=== PATIENT | male | born 1960 | race Caucasian/White ===

== ENCOUNTER → 2017-11-24 08:22 | Outpatient (CLI) | payer OTHER, SELFPAY ==
--- NOTE | 2017-11-24 | DI.ECHO.S_ITS ---
[facility] +---------+ : : [address] : [address] : : : : [phone] : : : : Phone: [phone]+ Echocardiogram Report + + :Name: IKE SABILLON Study Date: 11/24/2017 Height: 74 in : :[facility] Weight: 195 lb : : Gender: Male BSA: 2.1 m2 : :: 1960 Age: 57 yrs BP: 130/80 mmHg: :Reason For Study: Aortic, Biscupid Valve : : Performed By: Ariadna Espinoza : :Referring: NORMAN MIGUEL : + + Interpretation Summary Left ventricular systolic function is normal without focal wall motion abnormalities with the ejection fraction visually estimated to be 55-60%. There is borderline concentric left ventricular hypertrophy but diastolic parameters suggest normal left ventricular diastolic function and normal filling pressures. There has been no significant change since the previous study. The right ventricle is normal in size and function and is unchanged compared to the previous study. The right ventricular systolic pressure is estimated at 24 mmHg assuming a right atrial pressure of 3 mm Hg, and is likely unchanged compared to the previous study. Both atria are normal in size and unchanged compared to the previous study. The aortic valve is bicuspid and slightly calcified but the leaflets open fairly well with only minmal aortic stenosis with a calculated aortic valve area of 1.5 acid remover? and 1.9 acid remover? by planimetry and is unchanged compared to the previous study. There is no other significant valvular heart disease. The ascending aorta is moderately enlarged but unchanged compared to the previous study. The aortic arch is mildly enlarged. Procedure: A two-dimensional transthoracic echocardiogram with color flow and Doppler was performed. The study quality was technically good. Comparison is made with the echocardiogram of April,. The patient was in normal sinus rhythm during the exam. Left Ventricle: The left ventricle is normal in size. There is borderline concentric left ventricular hypertrophy. Left ventricular systolic function is normal without focal wall motion abnormalities. The ejection fraction is estimated to be 55-60%. Assessment of diastolic parameters indicates normal left ventricular diastolic function and normal filling pressures. There has been no significant change since the previous study. Right Ventricle: The right ventricle is normal in size and function. This is unchanged compared to the previous study. Atria: Both atria are normal in size. This is unchanged compared to the previous study. The interatrial septum is intact with no evidence for an atrial septal defect. Mitral Valve: The mitral valve is normal in structure and function. There is no mitral regurgitation noted. Aortic Valve: The aortic valve is bicuspid. The aortic valve is slightly calcified. The aortic valve opens well. There is minmal aortic stenosis. Severity ratio is 0.32. The calculated aortic valve area is 1.5 cm2. The aortic valve area is 1.9 centimeters squared by planimetry. This is unchanged compared to the previous study. The peak aortic velocity is 2.4 m/sec. The aortic valve mean gradient is 12 mmHg. No aortic regurgitation is present. Tricuspid Valve: The tricuspid valve is normal in structure and function. There is trace tricuspid regurgitation. The right ventricular systolic pressure is estimated at 24 mmHg assuming a right atrial pressure of 3 mm Hg. This is unchanged compared to the previous study. Pulmonic Valve: The pulmonic valve is not well seen, but is grossly normal. There is no pulmonic valvular regurgitation. There is no other significant valvular heart disease. Great Vessels: The aortic root is normal size. The ascending aorta is moderately enlarged. This is unchanged compared to the previous study. The aortic arch is mildly enlarged. Pericardium/ Pleura There is no pericardial effusion. There is no pleural effusion. MMode/2D Measurements & Calculations LVIDd: 4.8 cm LVOT diam: 2.4 cm LVIDs: 3.1 cm Ao root diam: 3.6 cm FS: 35.2 % Aortic Jxn: 2.9 cm IVSd: 0.91 cm asc Aorta Diam: 4.2 cm LVPWd: 1.1 cm Ao Arch Diam (Prox Trans): 3.3 cm LV orellana. diameter/BSA (cm/m^2): 2.2 LV sys. diameter/BSA (cm/m^2): 1.4 LA dimension: 3.7 cm RA long axis: 5.3 cm LA A2 area: 21.4 cm2 RA area: 17.8 cm2 LA A4 area: 19.7 cm2 RA vol: 51.5 ml LA length (vol): 5.6 cm RA : 24.0 ml/m2 LA vol: 64.1 ml IVC diam: 1.7 cm LA vol index: 29.8 ml/m2 RVDd major: 6.2 cm RVD1 (basal): 3.5 cm RVD2 (mid): 3.0 cm MAYCOL (plan): 1.9 cm2 Doppler Measurements & Calculations Ao V2 max: 242.6 cm/sec LVOT Max Cosme: 63.0 cm/sec Ao V2 mean: 156.4 cm/sec LV V1 max P.6 mmHg Ao max P.5 mmHg LV V1 VTI: 16.3 cm Ao mean P.5 mmHg MAYCOL(I,D): 1.5 cm2 Ao V2 VTI: 50.3 cm MAYCOL(V,D): 1.2 cm2 sev ratio: 0.32 MAYCOL indexed to BSA (cm^2/m^2): 0.69 MV E max cosme: 52.8 cm/sec TR max cosme: 231.2 cm/sec MV A max cosme: 55.9 cm/sec TR max P.4 mmHg MV E/A: 0.94 PA V2 max: 96.5 cm/sec Med Peak E' Cosme: 7.6 cm/sec PA V2 mean: 61.8 cm/sec E/E' med: 7.0 PA mean P.8 mmHg Lat Peak E' Cosme: 9.9 cm/sec PA Accel Time: 0.20 sec E/E' lat: 5.3 E/e' average: 6.2 MV dec time: 0.27 sec MV P1/2t: 76.4 msec MV P1/2t max cosme: 52.2 cm/sec MVA(P1/2t): 2.9 cm2 Reading Physician:CONSTANTINO
== END ==
PROVIDERS: Family Provider Internal Medicine; PCP Internal Medicine; Visit Provider Internal Medicine
DX: Q23.1 Congenital insufficiency of aortic valve (principal)
CPT/HCPCS: 93306

== ENCOUNTER → 2020-10-01 09:13 | Outpatient (CLI) | payer OTHER, SELFPAY ==
[2020-10-01 10:53] LABS: Add Manual Diff / Slide Review NO; Basophils Absolute Auto 0 /uL (0-100); Basophils Percent Auto 0.5 % (0-2); Eosinophils Absolute Auto 100 /uL (0-450); Eosinophils Percent Auto 1.7 % (2-4); Hematocrit 44.4 % (41-53); Hemoglobin 15.2 g/dL (13.5-17.5); Lymphocytes Absolute Auto 1000 /uL (1100-4500); Lymphocytes Percent Auto 23.8 % (25-40); Mean Corpuscular HGB Conc 34.1 % (30-36); Mean Corpuscular Hemoglobin 31.2 PG (26-34); Mean Corpuscular Volume 91.3 fL (80-100); Monocytes Absolute Auto 500 /uL (0-900); Monocytes Percent Auto 11.4 % (3-14); Neutrophils Absolute Auto 2700 /uL (1500-7000); Neutrophils Percent Auto 62.6 % (50-75); Platelet Count 191 X10^3/uL (150-400); Red Blood Cell Count 4.86 X10^6/uL (4.5-5.9); White Blood Cell Count 4.3 X10^3/uL (4.5-11.0)
[2020-10-01 11:04] LABS: Hemoglobin A1C% w Est Avg Glu 5.2 % (4.0-6.0)
[2020-10-01 11:06] LABS: Alanine Aminotransferase 29 IU/L (<50); Albumin 4.2 g/dL (3.5-5.0); Albumin Globulin Ratio 1.4 (1.0-2.8); Alkaline Phosphatase 59 U/L (38-126); Aspartate Aminotransferase 29 IU/L (17-59); BUN Creatinine Ratio 18.1 (6-22); Bilirubin Total 1.8 mg/dL (0.2-1.3); Blood Urea Nitrogen 17 mg/dL (9-20); Calcium 9.6 mg/dL (8.4-10.2); Carbon Dioxide 28 mmol/L (22-32); Chloride 103 mmol/L (98-107); Cholesterol 170 mg/dL (140-199); Estimated Glomerular Filt Rate > 60.0 mL/min (>60); Globulin 2.9 g/dL (1.7-4.1); Glucose 97 mg/dL (80-110); HDL Cholesterol 49 mg/dL (40-60); HEMOLYSIS < 15 (0-50); LDL Cholesterol Calculated 101 mg/dL (<100); Potassium 4.4 mmol/L (3.4-5.1); Sodium 138 mmol/L (137-145); Total Protein 7.1 g/dL (6.3-8.2); Triglycerides 100 mg/dL (35-150)
[2020-10-01 11:29] LABS: TSH w/ Reflex to FT4 2.26 uIU/mL (0.47-4.68)
== END ==
PROVIDERS: Family Provider Internal Medicine; PCP Family Medicine; Referring Provider Family Medicine; Visit Provider Family Medicine
DX: E78.1 Pure hyperglyceridemia (principal); E80.6 Other disorders of bilirubin metabolism
CPT/HCPCS: 36415; 80053; 80061; 83036; 84443; 85025

== ENCOUNTER → 2020-12-26 13:29 | Outpatient (CLI) | payer OTHER, SELFPAY ==
--- NOTE | 2020-12-26 13:46 | DI.ECHO.S_ITS ---
:Reason For Study: Aortic, Biscupid Valve : :Ordering Physician: VINNY, : :JOSE Performed By: Catrachito Simon : :Referring: JOSE CASILLAS : + + Interpretation Summary The left ventricle is normal in size and wall thickness.The ejection fraction is estimated to be 60-65%. The right ventricle is normal in size and function. The aortic valve is bicuspid. The aortic valve is mildly calcified. The peak aortic velocity is 2.81 m/sec. The aortic valve mean gradient is 17 mmHg. The peak aortic velocity on the previous exam was 2.4 m/sec. The calculated aortic valve area is 1.7 cm2. There is mild aortic stenosis. The IVC is of normal diameter and collapses greater than 50% with a sniff. This suggests a low right atrial pressure of 3 mm Hg. The ascending aorta is moderately enlarged. 4.2 cm in diameter. Unchanged from the previous study. Procedure: A two-dimensional transthoracic echocardiogram with color flow and Doppler was performed. The study quality was technically adequate. Comparison is made with the echocardiogram of 11/24/2017. The patient was in normal sinus rhythm during the exam. Left Ventricle: The left ventricle is normal in size and wall thickness. There is no thrombus. Left ventricular systolic function is normal. The ejection fraction is estimated to be 60-65%. There has been no significant change since the previous exam. There are no focal wall motion abnormalities. Diastolic parameters suggest a relaxation abnormality of the left ventricle, consistent with probable normal filling pressures. Right Ventricle: The right ventricle is normal in size and function. Atria: Both atria are normal in size. There is no Doppler evidence for an interatrial shunt. Mitral Valve: The mitral valve is normal in structure and function. There is no mitral regurgitation noted. Aortic Valve: The aortic valve is bicuspid. The aortic valve is mildly calcified. There is mild aortic stenosis. The aortic valve mean gradient is 17 mmHg. The peak aortic velocity is 2.81 m/sec. The peak aortic velocity on the previous exam was 2.4 m/sec. The calculated aortic valve area is 1.7 cm2. No aortic regurgitation is present. Tricuspid Valve: The tricuspid valve is normal in structure and function. There is a trace or physiologic amount of tricuspid regurgitation. Pulmonary artery pressures cannot be estimated because of the lack of a measurable TR jet velocity but the IVC suggests a CVP of around 3 mmHg. Pulmonic Valve: The pulmonic valve is not well seen, but is grossly normal. There is no pulmonic valvular regurgitation. Great Vessels: The aortic root is normal size. The ascending aorta is moderately enlarged. The IVC is of normal diameter and collapses greater than 50% with a sniff. This suggests a low right atrial pressure of 3 mm Hg. Pericardium/ Pleura There is no pericardial effusion. There is no pleural effusion. MMode/2D Measurements & Calculations LVIDd: 4.8 cm LVOT diam: 2.2 cm LVIDs: 3.1 cm Ao root diam: 3.5 cm FS: 35.4 % asc Aorta Diam: 4.2 cm IVSd: 0.90 cm LVPWd: 1.0 cm LV orellana. diameter/BSA (cm/m^2): 2.2 LV sys. diameter/BSA (cm/m^2): 1.4 LA dimension: 2.2 cm RA long axis: 4.2 cm LA A2 area: 19.5 cm2 LA A4 area: 17.4 cm2 LA length (vol): 5.4 cm LA vol: 52.9 ml LA vol index: 24.6 ml/m2 TAPSE_phl: 1.9 cm Doppler Measurements & Calculations Ao V2 max: 281.0 cm/sec LVOT Max Cosme: 116.0 cm/sec Ao V2 mean: 193.0 cm/sec LV V1 max P.4 mmHg Ao max P.0 mmHg LV V1 VTI: 24.3 cm Ao mean P.0 mmHg MAYCOL(I,D): 1.7 cm2 Ao V2 VTI: 53.2 cm MAYCOL(V,D): 1.6 cm2 sev ratio: 0.46 MAYCOL indexed to BSA (cm^2/m^2): 0.81 MV E max cosme: 69.5 cm/sec PA pr(Accel): 37.6 mmHg MV A max cosme: 75.5 cm/sec MV E/A: 0.92 Med Peak E' Cosme: 7.4 cm/sec E/E' med: 9.5 Lat Peak E' Cosme: 13.2 cm/sec E/E' lat: 5.3 E/e' average: 7.4 MV dec time: 0.30 sec SV(LVOT): 92.4 ml AV VR_phl: 0.41 MAYCOL(VTI)/BSA_phl: 0.81 MV P1/2t-pr_phl: 88.0 msec Reading Physician:06:20 PM
== END ==
PROVIDERS: PCP Family Medicine; Referring Provider Family Medicine; Visit Provider Family Medicine
DX: Q23.1 Congenital insufficiency of aortic valve (principal); I77.89 Other specified disorders of arteries and arterioles; I71.2 Thoracic aortic aneurysm, without rupture
CPT/HCPCS: 93306

== ENCOUNTER 2021-03-24 11:15 | Outpatient (RCR) | payer OTHER, SELFPAY ==
--- NOTE | 2020-12-10 15:50 | PT.OIE ---
Current Diagnoses Sprain of unspecified ligament of right ankle, initial encounter (12/10/20) Past Medical History (Last Updated 11/27/20 @ 11:27 by Mario Dsouza MD) Ankle pain (~2016) Ascending aortic aneurysm Bicuspid aortic valve Cataracts, bilateral Dilated aortic root Encounter for well adult exam without abnormal findings Foot pain (~2016) Headache History of hernia repair Hyperbilirubinemia Hypertriglyceridemia Psoriasis Tinnitus Past Surgical History (Last Updated 11/22/20 @ 21:23 by Katelyn Larsen) History of hernia repair Visit Care Team Role Provider Type Mario Dsouza MD Attending Provider Physician Primary Care Provider Referring Provider Specialty: [facility] Address: [address] [place] [address], [facility] Email: [email or web address] Physical Therapy Initial Evaluation PT-OP-A Visit Information Start: 12/10/20 15:32 Freq: Status: Active Protocol: Document 12/10/20 12:01 OF (Rec: 12/10/20 15:50 OF [id number]) Out-Patient Physical Therapy Visit Information Visit Information Visit Type Initial Evaluation Visit Start Time 11:15 Visit Stop Time 12:01 Total Visit Minutes 46 Visit Number 1 Evaluation Information Evaluation Date 12/10/20 PT-OP-B Current Condition Start: 12/10/20 15:32 Freq: Status: Active Protocol: Document 12/10/20 12:01 OF (Rec: 12/10/20 15:50 OF [id number]) Current Condition History of Current Condition Onset Date high school History of Current Condition Pt states he injured ankle wrestling in high school, it has bothered him off/on since. The past few months have been worse. He has pain after work or exercise, rarely during exercise or activity Treatment Goals Patient/Caregiver Goals get my ankle back to normal Prior Functional Status Baseline Function- ADL's Independent Baseline Function- Mobility Independent Current Functional Impairments (Reported) Functional Limitations- ADL's pain with work, pain with exercise PT-OP-C Subjective Start: 12/10/20 15:32 Freq: Status: Active Protocol: Document 12/10/20 12:01 OF (Rec: 12/10/20 15:50 OF [id number]) OP-PT Subjective Patient Comments Patient Comments pt reports ankle pain after prolonged kneeling, walking or standing on a ladder Patient Reported Progress Same Patient Questionnaires Lower Extremity Functional Scale LEFS Impairment 20 to 39% Impaired (Score 48- 62) OP-PT Pain Assessment Pain Assessment Grid Paper Pain Assessment Grid Completed Yes: ankle medial, superior Location r ankle Scale Used Numeric (0 - 10) Description Aching,Pulling Frequency Frequent Pain Aggravating Factors ADL's,Activity,Exercise Pain Alleviating Factors Inactivity Home Pain Medication Use Pain Medications Used No PT-OP-K Range of Motion Start: 12/10/20 15:32 Freq: Status: Active Protocol: Document 12/10/20 12:01 OF (Rec: 12/10/20 15:50 OF [id number]) Ankle and Foot Goniometric Range of Motion Ankle and Foot Left Ankle/Foot ROM WFL No Testing Position Sitting Dorsiflexion with Knee Flexed 15 Dorsiflexion with Knee Extended 15 Plantarflexion 30 Right Ankle/Foot ROM WFL No Testing Position Sitting Dorsiflexion with Knee Flexed 10 Dorsiflexion with Knee Extended 10 Plantarflexion 30 PT-OP-M Strength Start: 12/10/20 15:32 Freq: Status: Active Protocol: Document 12/10/20 12:01 OF (Rec: 12/10/20 15:50 OF [id number]) Ankle/Foot Strength Ankle and Foot Manual Muscle Testing Left Dorsiflexion (L4) 5 Normal Plantarflexion (S1) 5 Normal Inversion 5 Normal Eversion (S1) 5 Normal Right Dorsiflexion (L4) 4+ Good+ Plantarflexion (S1) 4+ Good+ Inversion 4 Good Eversion (S1) 4 Good PT-OP-Q Treatments Start: 12/10/20 15:32 Freq: Status: Active Protocol: Document 12/10/20 12:01 OF (Rec: 12/10/20 15:50 OF [id number]) Therapeutic Exercises Standing Exercises gastroc stretch Standing Exercise Name runners stretch Side bilateral Reps/Minutes [id number] Manual Therapy Treatment Joint Mobilizations talus Direction A.P for dorsiflexion Grade III Body Position Sitting Reps/Duration x5min Self-Care/Home Management Treatment Education Patient Education Home Exercise Program,Joint Protection,Pain Management PT-OP-T Assessment and Plan Start: 12/10/20 15:32 Freq: Status: Active Protocol: Document 12/10/20 12:01 OF (Rec: 12/10/20 15:50 OF [id number]) Physical Therapy Assessment Rehab Potential Rehabilitation Potential Good Evaluation Complexity Number of Personal Factors/Comorbidities 1-2 Number of Body Systems Impaired 1-2 Clinical Presentation at Evaluation Stable Impairments Impairments Activity Tolerance,Gait,Pain, ROM,Strength Goals 4 Impairment ankle weakness STG Duration Pt will improve ankle strength to 5/5 in all planes LTG Duration 6 weeks 3 Impairment loss of LE function Mcfp Goal (LTG) Pt will improve LEFS score to >70/80 to demonstrate improved LE function 2 Impairment pain with prolonged walking Short Term Goal (STG) Pt will be able to walk 1mile with pain <2/10 STG Duration 2weeks Mcfp Goal (LTG) Pt will be able to walk 3miles with pain <2/10 LTG Duration 6 weeks 1 Impairment pt has no HEP Short Term Goal (STG) Pt will be I with HEP to manage pain in R ankle and perform strengthening activity STG Duration 2 weeks Assessment Summary Assessment Gt is a pleasant 60 yo male . He has had chronic ankle pain which originated in high school. He has on/off symptoms , mostly in medial tibia, occasional over anterior ankle . he states it feels unsteady occasionally. He has pain with prolonged forced plantarflexion (kneeling on floor) and standing on ladder, or walking >1mile. He has no relevant Pmhx and is motived to return to restoring his house. He demonstrates good arch lift, but flat feet bilat . He has pain in great toe flexors with resistance, otherwise pain free. He is willing to try joint mobilizations, shoe inserts, and stretches to address his ankle pain. He will require skilled therapy to improve his R ankle ROM and strength, increase his LE function, and return to I within the community per his PLOF. Physical Therapy Plan Frequency and Duration Frequency of Treatment 1-2x/week Duration of Treatment 6weeks Plan of Care Start Date 12/10/20 Plan of Care End Date 01/21/21 Therapeutic Interventions Therapeutic Interventions Gait Training,Home Exercise Program,Joint Mobilizations, Therapeutic Activities, Therapeutic Exercises Next Visit Focus/Plan Next Note Type Treatment Note Next Visit Plan assess runners stretch, inserts, joint mobs for ankle.
--- NOTE | 2020-12-10 15:50 | PT.OPPOC ---
Physical, Occupational & Speech Therapy At [facility] Current Diagnoses Sprain of unspecified ligament of right ankle, initial encounter (12/10/20) Visit Care Team Role Provider Type Mario Dsouza MD Attending Provider Physician Primary Care Provider Referring Provider Specialty: Family Practice Address: [address] [place] [address], [facility] Email: [email or web address] Plan Of Care PT-OP-T Assessment and Plan Start: 12/10/20 15:32 Freq: Status: Active Protocol: Document 12/10/20 12:01 OF (Rec: 12/10/20 15:50 OF [id number]) Physical Therapy Assessment Rehab Potential Rehabilitation Potential Good Evaluation Complexity Number of Personal Factors/Comorbidities 1-2 Number of Body Systems Impaired 1-2 Clinical Presentation at Evaluation Stable Impairments Impairments Activity Tolerance,Gait,Pain, ROM,Strength Goals 4 Impairment ankle weakness STG Duration Pt will improve ankle strength to 5/5 in all planes LTG Duration 6 weeks 3 Impairment loss of LE function Commercial Designer Goal (LTG) Pt will improve LEFS score to >70/80 to demonstrate improved LE function 2 Impairment pain with prolonged walking Short Term Goal (STG) Pt will be able to walk 1mile with pain <2/10 STG Duration 2weeks Commercial Designer Goal (LTG) Pt will be able to walk 3miles with pain <2/10 LTG Duration 6 weeks 1 Impairment pt has no HEP Short Term Goal (STG) Pt will be I with HEP to manage pain in R ankle and perform strengthening activity STG Duration 2 weeks Assessment Summary Assessment Gt is a pleasant 60 yo male . He has had chronic ankle pain which originated in high school. He has on/off symptoms , mostly in medial tibia, occasional over anterior ankle . he states it feels unsteady occasionally. He has pain with prolonged forced plantarflexion (kneeling on floor) and standing on ladder, or walking >1mile. He has no relevant Pmhx and is motived to return to restoring his house. He demonstrates good arch lift, but flat feet bilat . He has pain in great toe flexors with resistance, otherwise pain free. He is willing to try joint mobilizations, shoe inserts, and stretches to address his ankle pain. He will require skilled therapy to improve his R ankle ROM and strength, increase his LE function, and return to I within the community per his PLOF. Physical Therapy Plan Frequency and Duration Frequency of Treatment 1-2x/week Duration of Treatment 6weeks Plan of Care Start Date 12/10/20 Plan of Care End Date 01/21/21 Therapeutic Interventions Therapeutic Interventions Gait Training,Home Exercise Program,Joint Mobilizations, Therapeutic Activities, Therapeutic Exercises Next Visit Focus/Plan Next Note Type Treatment Note Next Visit Plan assess runners stretch, inserts, joint mobs for ankle. Plan of Care Dates Plan of Care Start Date 12/10/20 Plan of Care End Date 01/21/21 Electronically Signed by: Stephen Ornelas, PT 12/10/20 [id number] Please Sign and Return: I have reviewed this Plan of Care and certify that the skilled therapy services above are required to meet the patient?s needs. Physician Signature Date Printed Name and Credentials Clinical Instructor Signature Printed Name and Credentials
--- NOTE | 2020-12-12 12:08 | PT.OTN ---
Current Diagnoses Sprain of unspecified ligament of right ankle, initial encounter (12/12/20) Physical Therapy Treatment Note PT-OP-A Visit Information Start: 12/10/20 15:32 Freq: Status: Active Protocol: Document 12/12/20 11:56 OF (Rec: 12/12/20 12:08 OF [id number]) Out-Patient Physical Therapy Visit Information Visit Information Visit Type Treatment Note Visit Start Time 11:14 Visit Stop Time 11:54 Total Visit Minutes 40 Visit Number 2 Evaluation Information Evaluation Date 12/10/20 Precautions Precautions pt states he may be self pay due to high deductible PT-OP-B Current Condition Start: 12/10/20 15:32 Freq: Status: Active Protocol: Document 12/10/20 12:01 OF (Rec: 12/10/20 15:50 OF [id number]) Current Condition History of Current Condition Onset Date high school History of Current Condition Pt states he injured ankle wrestling in high school, it has bothered him off/on since. The past few months have been worse. He has pain after work or exercise, rarely during exercise or activity Treatment Goals Patient/Caregiver Goals get my ankle back to normal Prior Functional Status Baseline Function- ADL's Independent Baseline Function- Mobility Independent Current Functional Impairments (Reported) Functional Limitations- ADL's pain with work, pain with exercise PT-OP-C Subjective Start: 12/10/20 15:32 Freq: Status: Active Protocol: Document 12/12/20 11:56 OF (Rec: 12/12/20 12:08 OF [id number]) OP-PT Subjective Patient Comments Patient Comments pt reports HEP for calf stretching, he has ordered inserts for shoes OP-PT Pain Assessment Pain Assessment Grid Paper Pain Assessment Grid Completed No: pt denies pain today PT-OP-K Range of Motion Start: 12/10/20 15:32 Freq: Status: Active Protocol: Document 12/10/20 12:01 OF (Rec: 12/10/20 15:50 OF [id number]) Ankle and Foot Goniometric Range of Motion Ankle and Foot Left Ankle/Foot ROM WFL No Testing Position Sitting Dorsiflexion with Knee Flexed 15 Dorsiflexion with Knee Extended 15 Plantarflexion 30 Right Ankle/Foot ROM WFL No Testing Position Sitting Dorsiflexion with Knee Flexed 10 Dorsiflexion with Knee Extended 10 Plantarflexion 30 PT-OP-M Strength Start: 12/10/20 15:32 Freq: Status: Active Protocol: Document 12/10/20 12:01 OF (Rec: 12/10/20 15:50 OF [id number]) Ankle/Foot Strength Ankle and Foot Manual Muscle Testing Left Dorsiflexion (L4) 5 Normal Plantarflexion (S1) 5 Normal Inversion 5 Normal Eversion (S1) 5 Normal Right Dorsiflexion (L4) 4+ Good+ Plantarflexion (S1) 4+ Good+ Inversion 4 Good Eversion (S1) 4 Good PT-OP-Q Treatments Start: 12/10/20 15:32 Freq: Status: Active Protocol: Document 12/12/20 11:56 OF (Rec: 12/12/20 12:08 OF [id number]) Therapeutic Exercises Standing Exercises heel raise on step Side bilateral Reps/Minutes 3x5 Comments eccentric focus to neutral only gastroc stretch Standing Exercise Name runners stretch Side bilateral Reps/Minutes [id number] Manual Therapy Treatment Joint Mobilizations MWM Joint ankle Direction post Grade III Body Position Standing Reps/Duration x10min Comments standing dorsiflexion from pt, post glide to talus and medial malleolus talus Grade III Body Position Standing Reps/Duration x5 min Self-Care/Home Management Treatment Education Patient Education Body Mechanics,Home Exercise Program,Pain Management PT-OP-T Assessment and Plan Start: 12/10/20 15:32 Freq: Status: Active Protocol: Document 12/12/20 11:56 OF (Rec: 12/12/20 12:08 OF [id number]) Physical Therapy Assessment Rehab Potential Rehabilitation Potential Good Evaluation Complexity Number of Personal Factors/Comorbidities 1-2 Number of Body Systems Impaired 1-2 Clinical Presentation at Evaluation Stable Impairments Impairments Activity Tolerance,Soft Tissue Mobility,Strength Goals 4 Impairment ankle weakness STG Duration Pt will improve ankle strength to 5/5 in all planes LTG Duration 6 weeks 3 Impairment loss of LE function Supervisor Engine Assembly Goal (LTG) Pt will improve LEFS score to >70/80 to demonstrate improved LE function 2 Impairment pain with prolonged walking Short Term Goal (STG) Pt will be able to walk 1mile with pain <2/10 STG Duration 2weeks [facility] Goal (LTG) Pt will be able to walk 3miles with pain <2/10 LTG Duration 6 weeks 1 Impairment pt has no HEP Short Term Goal (STG) Pt will be I with HEP to manage pain in R ankle and perform strengthening activity STG Duration 2 weeks Progress Towards Goals Progress Towards Goals Progressing Toward Goals Assessment Summary Assessment pt reports improved symptoms after HEP, increased pain with forced plantarflexion/ER while kneeling and scooting/ rolling. Physical Therapy Plan Frequency and Duration Frequency of Treatment 2x/Week Duration of Treatment 40 Plan of Care Start Date 12/12/20 Therapeutic Interventions Therapeutic Interventions Gait Training,Home Exercise Program,Joint Mobilizations, Therapeutic Activities, Therapeutic Exercises Next Visit Focus/Plan Next Note Type Treatment Note Next Visit Plan assess response to orthotics, heel lifts and manual. Progress MWM for dorsiflexion, activity mods to reduce ankle pain when aggravated
--- NOTE | 2020-12-18 16:05 | PT.OTN ---
Current Diagnoses Sprain of unspecified ligament of right ankle, initial encounter (12/18/20) Physical Therapy Treatment Note PT-OP-A Visit Information Start: 12/10/20 15:32 Freq: Status: Active Protocol: Document 12/18/20 15:58 OF (Rec: 12/18/20 16:05 OF [email or web address]) Out-Patient Physical Therapy Visit Information Visit Information Visit Type Treatment Note Visit Start Time 15:15 Visit Stop Time 15:57 Total Visit Minutes 42 Visit Number 3 Evaluation Information Evaluation Date 12/10/20 Precautions Precautions pt states he may be self pay due to high deductible PT-OP-B Current Condition Start: 12/10/20 15:32 Freq: Status: Active Protocol: Document 12/10/20 12:01 OF (Rec: 12/10/20 15:50 OF [id number]) Current Condition History of Current Condition Onset Date high school History of Current Condition Pt states he injured ankle wrestling in high school, it has bothered him off/on since. The past few months have been worse. He has pain after work or exercise, rarely during exercise or activity Treatment Goals Patient/Caregiver Goals get my ankle back to normal Prior Functional Status Baseline Function- ADL's Independent Baseline Function- Mobility Independent Current Functional Impairments (Reported) Functional Limitations- ADL's pain with work, pain with exercise PT-OP-C Subjective Start: 12/10/20 15:32 Freq: Status: Active Protocol: Document 12/18/20 15:58 OF (Rec: 12/18/20 16:05 OF [email or web address]) OP-PT Subjective Patient Comments Patient Comments pt with superfeet, reports using as instructed 2-hrs at a time Patient Reported Progress Improving OP-PT Pain Assessment Location r ankle Pain Location Details 2 Scale Used Numeric (0 - 10) Description Aching,Pulling,Sharp Frequency Frequent Pain Aggravating Factors Activity,Exercise,Walking, Stair Climbing Pain Alleviating Factors Inactivity PT-OP-K Range of Motion Start: 12/10/20 15:32 Freq: Status: Active Protocol: Document 12/10/20 12:01 OF (Rec: 12/10/20 15:50 OF [id number]) Ankle and Foot Goniometric Range of Motion Ankle and Foot Left Ankle/Foot ROM WFL No Testing Position Sitting Dorsiflexion with Knee Flexed 15 Dorsiflexion with Knee Extended 15 Plantarflexion 30 Right Ankle/Foot ROM WFL No Testing Position Sitting Dorsiflexion with Knee Flexed 10 Dorsiflexion with Knee Extended 10 Plantarflexion 30 PT-OP-M Strength Start: 12/10/20 15:32 Freq: Status: Active Protocol: Document 12/10/20 12:01 OF (Rec: 12/10/20 15:50 OF [id number]) Ankle/Foot Strength Ankle and Foot Manual Muscle Testing Left Dorsiflexion (L4) 5 Normal Plantarflexion (S1) 5 Normal Inversion 5 Normal Eversion (S1) 5 Normal Right Dorsiflexion (L4) 4+ Good+ Plantarflexion (S1) 4+ Good+ Inversion 4 Good Eversion (S1) 4 Good PT-OP-Q Treatments Start: 12/10/20 15:32 Freq: Status: Active Protocol: Document 12/18/20 15:58 OF (Rec: 12/18/20 16:05 OF [email or web address]) Therapeutic Exercises Standing Exercises heel raise on step Side bilateral Reps/Minutes 3x10 Comments eccentric focus to neutral only gastroc stretch Standing Exercise Name runners stretch Side bilateral Reps/Minutes [id number] Manual Therapy Treatment Soft Tissue Mobilization R great toe flexor Mobilization Type Rolling,Sustained Pressure Intensity/Depth Moderate Body Position Prone Comments to belly and tendon, pain with STM, improved symptoms post tx Joint Mobilizations great toe Joint MTP Direction sup/inf Grade III Body Position Prone MWM Joint ankle Direction post Grade III Body Position Standing Reps/Duration x10min Comments standing dorsiflexion from pt, post glide to talus talus Grade III Body Position Standing Reps/Duration x5 min Self-Care/Home Management Treatment Education Patient Education Home Exercise Program PT-OP-T Assessment and Plan Start: 12/10/20 15:32 Freq: Status: Active Protocol: Document 12/18/20 15:58 OF (Rec: 12/18/20 16:05 OF [email or web address]) Physical Therapy Assessment Rehab Potential Rehabilitation Potential Good Evaluation Complexity Number of Personal Factors/Comorbidities 1-2 Number of Body Systems Impaired 1-2 Clinical Presentation at Evaluation Stable Impairments Impairments Activity Tolerance,Gait,Pain, Soft Tissue Mobility,Strength Goals 4 Impairment ankle weakness STG Duration Pt will improve ankle strength to 5/5 in all planes LTG Duration 6 weeks 3 Impairment loss of LE function Fpc Goal (LTG) Pt will improve LEFS score to >70/80 to demonstrate improved LE function 2 Impairment pain with prolonged walking Short Term Goal (STG) Pt will be able to walk 1mile with pain <2/10 STG Duration 2weeks Insurance Producer Goal (LTG) Pt will be able to walk 3miles with pain <2/10 LTG Duration 6 weeks 1 Impairment pt has no HEP Short Term Goal (STG) Pt will be I with HEP to manage pain in R ankle and perform strengthening activity STG Duration 2 weeks Progress Towards Goals Progress Towards Goals Progressing Toward Goals Assessment Summary Assessment Gt reports HEP as instructed, pain with AMB. He has been using insoles as instructed, increasing wear time to 4hrs Physical Therapy Plan Frequency and Duration Frequency of Treatment 1/2x week Duration of Treatment 40 Plan of Care Start Date 12/12/20 Plan of Care End Date 01/21/21 Therapeutic Interventions Therapeutic Interventions Gait Training,Home Exercise Program,Joint Mobilizations, Therapeutic Activities, Therapeutic Exercises Next Visit Focus/Plan Next Note Type Treatment Note Next Visit Plan assess response to mobs, HEP progression
--- NOTE | 2020-12-20 12:50 | PT.OTN ---
Current Diagnoses Sprain of unspecified ligament of right ankle, initial encounter (12/20/20) Physical Therapy Treatment Note PT-OP-A Visit Information Start: 12/10/20 15:32 Freq: Status: Active Protocol: Document 12/20/20 12:43 OF (Rec: 12/20/20 12:50 OF [email or web address]) Out-Patient Physical Therapy Visit Information Visit Information Visit Type Treatment Note Visit Start Time 11:15 Visit Stop Time 11:56 Total Visit Minutes 41 Visit Number 4 Evaluation Information Evaluation Date 12/10/20 PT-OP-B Current Condition Start: 12/10/20 15:32 Freq: Status: Active Protocol: Document 12/10/20 12:01 OF (Rec: 12/10/20 15:50 OF [id number]) Current Condition History of Current Condition Onset Date high school History of Current Condition Pt states he injured ankle wrestling in high school, it has bothered him off/on since. The past few months have been worse. He has pain after work or exercise, rarely during exercise or activity Treatment Goals Patient/Caregiver Goals get my ankle back to normal Prior Functional Status Baseline Function- ADL's Independent Baseline Function- Mobility Independent Current Functional Impairments (Reported) Functional Limitations- ADL's pain with work, pain with exercise PT-OP-C Subjective Start: 12/10/20 15:32 Freq: Status: Active Protocol: Document 12/20/20 12:43 OF (Rec: 12/20/20 12:50 OF [email or web address]) OP-PT Subjective Patient Comments Patient Comments pt reports pain yesterday, improved function with orthotics OP-PT Pain Assessment Pain Assessment Grid Paper Pain Assessment Grid Completed No Location r ankle Pain Location Details pt denies pain unless weighted eversion PT-OP-K Range of Motion Start: 12/10/20 15:32 Freq: Status: Active Protocol: Document 12/10/20 12:01 OF (Rec: 12/10/20 15:50 OF [id number]) Ankle and Foot Goniometric Range of Motion Ankle and Foot Left Ankle/Foot ROM WFL No Testing Position Sitting Dorsiflexion with Knee Flexed 15 Dorsiflexion with Knee Extended 15 Plantarflexion 30 Right Ankle/Foot ROM WFL No Testing Position Sitting Dorsiflexion with Knee Flexed 10 Dorsiflexion with Knee Extended 10 Plantarflexion 30 PT-OP-M Strength Start: 12/10/20 15:32 Freq: Status: Active Protocol: Document 12/10/20 12:01 OF (Rec: 12/10/20 15:50 OF [id number]) Ankle/Foot Strength Ankle and Foot Manual Muscle Testing Left Dorsiflexion (L4) 5 Normal Plantarflexion (S1) 5 Normal Inversion 5 Normal Eversion (S1) 5 Normal Right Dorsiflexion (L4) 4+ Good+ Plantarflexion (S1) 4+ Good+ Inversion 4 Good Eversion (S1) 4 Good PT-OP-Q Treatments Start: 12/10/20 15:32 Freq: Status: Active Protocol: Document 12/20/20 12:43 OF (Rec: 12/20/20 12:50 OF [email or web address]) Therapeutic Exercises Standing Exercises heel raise on step Side bilateral Reps/Minutes 3x10 Comments eccentric focus to neutral only gastroc stretch Standing Exercise Name runners stretch, JESÚS for extended knees Side bilateral Reps/Minutes [id number] Manual Therapy Treatment Soft Tissue Mobilization R great toe flexor Mobilization Type Rolling,Sustained Pressure Intensity/Depth Moderate Body Position Prone Comments to belly and tendon, pain with STM, improved symptoms post tx, 10min Joint Mobilizations great toe Joint MTP Direction sup/inf Grade III Body Position Prone Reps/Duration 10min MWM Joint ankle Direction post Grade III Body Position Standing Reps/Duration x10min Comments standing dorsiflexion from pt, post glide to talus Self-Care/Home Management Treatment Education Patient Education Home Exercise Program,Pain Management Other Education pt advised to use orthotics at home to reduce foot/ankle pain PT-OP-T Assessment and Plan Start: 12/10/20 15:32 Freq: Status: Active Protocol: Document 12/20/20 12:43 OF (Rec: 12/20/20 12:50 OF [email or web address]) Physical Therapy Assessment Rehab Potential Rehabilitation Potential Excellent Evaluation Complexity Number of Personal Factors/Comorbidities 1-2 Number of Body Systems Impaired 1-2 Clinical Presentation at Evaluation Stable Impairments Impairments Activity Tolerance,Gait,Pain, Soft Tissue Mobility,Strength Goals 4 Impairment ankle weakness STG Duration Pt will improve ankle strength to 5/5 in all planes LTG Duration 6 weeks 3 Impairment loss of LE function Intermediate Goal (LTG) Pt will improve LEFS score to >70/80 to demonstrate improved LE function 2 Impairment pain with prolonged walking Short Term Goal (STG) Pt will be able to walk 1mile with pain <2/10 STG Duration 2weeks Intermediate Goal (LTG) Pt will be able to walk 3miles with pain <2/10 LTG Duration 6 weeks 1 Impairment pt has no HEP Short Term Goal (STG) Pt will be I with HEP to manage pain in R ankle and perform strengthening activity STG Duration 2 weeks Assessment Summary Assessment Gt reports improved daily function with orthotics, HEP as instructed Physical Therapy Plan Frequency and Duration Frequency of Treatment 1x/Week Duration of Treatment 40 Plan of Care Start Date 12/12/20 Plan of Care End Date 01/21/21 Therapeutic Interventions Therapeutic Interventions Gait Training,Home Exercise Program,Joint Mobilizations, Therapeutic Activities, Therapeutic Exercises Next Visit Focus/Plan Next Note Type Treatment Note Next Visit Plan progress post tib strengthening if symptoms have improved
--- NOTE | 2020-12-25 12:30 | PT.OTN ---
Current Diagnoses Sprain of unspecified ligament of right ankle, initial encounter (12/25/20) Physical Therapy Treatment Note PT-OP-A Visit Information Start: 12/10/20 15:32 Freq: Status: Active Protocol: Document 12/25/20 12:25 OF (Rec: 12/25/20 12:30 OF [email or web address]) Out-Patient Physical Therapy Visit Information Visit Information Visit Type Treatment Note Visit Start Time 10:25 Visit Stop Time 11:10 Total Visit Minutes 45 Visit Number 5 Evaluation Information Evaluation Date 12/10/20 Precautions Precautions pt states he may be self pay due to high deductible PT-OP-B Current Condition Start: 12/10/20 15:32 Freq: Status: Active Protocol: Document 12/10/20 12:01 OF (Rec: 12/10/20 15:50 OF [id number]) Current Condition History of Current Condition Onset Date high school History of Current Condition Pt states he injured ankle wrestling in high school, it has bothered him off/on since. The past few months have been worse. He has pain after work or exercise, rarely during exercise or activity Treatment Goals Patient/Caregiver Goals get my ankle back to normal Prior Functional Status Baseline Function- ADL's Independent Baseline Function- Mobility Independent Current Functional Impairments (Reported) Functional Limitations- ADL's pain with work, pain with exercise PT-OP-C Subjective Start: 12/10/20 15:32 Freq: Status: Active Protocol: Document 12/25/20 12:25 OF (Rec: 12/25/20 12:30 OF [email or web address]) OP-PT Subjective Patient Comments Patient Comments pt reports improved symptoms with orthotics, difficulty with normal gait pattern and no orthotics Patient Reported Progress Improving OP-PT Pain Assessment Pain Assessment Grid Paper Pain Assessment Grid Completed No: pt denies pain during tx, reports pain with bad steps PT-OP-K Range of Motion Start: 12/10/20 15:32 Freq: Status: Active Protocol: Document 12/10/20 12:01 OF (Rec: 12/10/20 15:50 OF [id number]) Ankle and Foot Goniometric Range of Motion Ankle and Foot Left Ankle/Foot ROM WFL No Testing Position Sitting Dorsiflexion with Knee Flexed 15 Dorsiflexion with Knee Extended 15 Plantarflexion 30 Right Ankle/Foot ROM WFL No Testing Position Sitting Dorsiflexion with Knee Flexed 10 Dorsiflexion with Knee Extended 10 Plantarflexion 30 PT-OP-M Strength Start: 12/10/20 15:32 Freq: Status: Active Protocol: Document 12/10/20 12:01 OF (Rec: 12/10/20 15:50 OF [id number]) Ankle/Foot Strength Ankle and Foot Manual Muscle Testing Left Dorsiflexion (L4) 5 Normal Plantarflexion (S1) 5 Normal Inversion 5 Normal Eversion (S1) 5 Normal Right Dorsiflexion (L4) 4+ Good+ Plantarflexion (S1) 4+ Good+ Inversion 4 Good Eversion (S1) 4 Good PT-OP-Q Treatments Start: 12/10/20 15:32 Freq: Status: Active Protocol: Document 12/25/20 12:25 OF (Rec: 12/25/20 12:30 OF [email or web address]) Therapeutic Exercises Standing Exercises sls Side right Reps/Minutes [id number] Comments cues for relaxed great toe, using whole foot for maintaining balance soleus stretch Side bilateral Reps/Minutes [id number] Comments cues for proper knee bend, slow stretch heel raise on step Side bilateral Reps/Minutes 3x10 Comments eccentric focus to neutral only gastroc stretch Standing Exercise Name runners stretch, JESÚS for extended knees Side bilateral Reps/Minutes [id number] Manual Therapy Treatment Soft Tissue Mobilization R great toe flexor Mobilization Type Rolling,Sustained Pressure Intensity/Depth Moderate Body Position Prone Comments to tendon, pain with STM, 10min Joint Mobilizations great toe Joint MTP Direction sup/inf Grade III Body Position Prone Reps/Duration 10min MWM Joint ankle Direction post Grade III Body Position Standing Reps/Duration x10min Comments standing dorsiflexion from pt, post glide to talus talus Grade III Body Position Standing Reps/Duration x5 min Self-Care/Home Management Treatment Education Patient Education Home Exercise Program PT-OP-T Assessment and Plan Start: 12/10/20 15:32 Freq: Status: Active Protocol: Document 12/25/20 12:25 OF (Rec: 12/25/20 12:30 OF [email or web address]) Physical Therapy Assessment Rehab Potential Rehabilitation Potential Good Evaluation Complexity Number of Personal Factors/Comorbidities 1-2 Number of Body Systems Impaired 1-2 Clinical Presentation at Evaluation Stable Impairments Impairments Activity Tolerance,Gait,Pain, Soft Tissue Mobility,Strength Goals 4 Impairment ankle weakness STG Duration Pt will improve ankle strength to 5/5 in all planes LTG Duration 6 weeks 3 Impairment loss of LE function Client Services Coordinator Goal (LTG) Pt will improve LEFS score to >70/80 to demonstrate improved LE function 2 Impairment pain with prolonged walking Short Term Goal (STG) Pt will be able to walk 1mile with pain <2/10 STG Duration 2weeks Prison Goal (LTG) Pt will be able to walk 3miles with pain <2/10 LTG Duration 6 weeks 1 Impairment pt has no HEP Short Term Goal (STG) Pt will be I with HEP to manage pain in R ankle and perform strengthening activity STG Duration 2 weeks Progress Towards Goals Progress Towards Goals Progressing Toward Goals Assessment Summary Assessment Gt reports HEP as instructed, improved symptoms with orthotics, rest, and activity modifications. He is eager to initiate walking/ hiking. Agreeable to 1/2 flat walk with orthotic for HEP Physical Therapy Plan Frequency and Duration Frequency of Treatment 1x/Week Plan of Care Start Date 12/12/20 Plan of Care End Date 01/21/21 Therapeutic Interventions Therapeutic Interventions Gait Training,Home Exercise Program,Joint Mobilizations, Therapeutic Activities, Therapeutic Exercises Next Visit Focus/Plan Next Note Type Treatment Note Next Visit Plan assess 1/2 mile walk for pain free, HEP, orthotics
--- NOTE | 2021-01-01 12:46 | PT.OTN ---
Current Diagnoses Sprain of unspecified ligament of right ankle, initial encounter (01/01/21) Physical Therapy Treatment Note PT-OP-A Visit Information Start: 12/10/20 15:32 Freq: Status: Active Protocol: Document 01/01/21 12:41 OF (Rec: 01/01/21 12:46 OF [id number]) Out-Patient Physical Therapy Visit Information Visit Information Visit Type Treatment Note Visit Start Time 10:25 Visit Stop Time 11:12 Total Visit Minutes 47 Visit Number 6 PT-OP-B Current Condition Start: 12/10/20 15:32 Freq: Status: Active Protocol: Document 12/10/20 12:01 OF (Rec: 12/10/20 15:50 OF [id number]) Current Condition History of Current Condition Onset Date high school History of Current Condition Pt states he injured ankle wrestling in high school, it has bothered him off/on since. The past few months have been worse. He has pain after work or exercise, rarely during exercise or activity Treatment Goals Patient/Caregiver Goals get my ankle back to normal Prior Functional Status Baseline Function- ADL's Independent Baseline Function- Mobility Independent Current Functional Impairments (Reported) Functional Limitations- ADL's pain with work, pain with exercise PT-OP-C Subjective Start: 12/10/20 15:32 Freq: Status: Active Protocol: Document 01/01/21 12:41 OF (Rec: 01/01/21 12:46 OF [id number]) OP-PT Subjective Patient Comments Patient Comments I think it is getting better, but it still hurts if I move wrong Patient Reported Progress Improving OP-PT Pain Assessment Location r ankle Pain Location Details 1 Intensity 1 Scale Used Numeric (0 - 10) Description Stabbing Frequency Occasional Pain Aggravating Factors Exercise,Stair Climbing PT-OP-K Range of Motion Start: 12/10/20 15:32 Freq: Status: Active Protocol: Document 12/10/20 12:01 OF (Rec: 12/10/20 15:50 OF [id number]) Ankle and Foot Goniometric Range of Motion Ankle and Foot Left Ankle/Foot ROM WFL No Testing Position Sitting Dorsiflexion with Knee Flexed 15 Dorsiflexion with Knee Extended 15 Plantarflexion 30 Right Ankle/Foot ROM WFL No Testing Position Sitting Dorsiflexion with Knee Flexed 10 Dorsiflexion with Knee Extended 10 Plantarflexion 30 PT-OP-M Strength Start: 12/10/20 15:32 Freq: Status: Active Protocol: Document 12/10/20 12:01 OF (Rec: 12/10/20 15:50 OF [id number]) Ankle/Foot Strength Ankle and Foot Manual Muscle Testing Left Dorsiflexion (L4) 5 Normal Plantarflexion (S1) 5 Normal Inversion 5 Normal Eversion (S1) 5 Normal Right Dorsiflexion (L4) 4+ Good+ Plantarflexion (S1) 4+ Good+ Inversion 4 Good Eversion (S1) 4 Good PT-OP-Q Treatments Start: 12/10/20 15:32 Freq: Status: Active Protocol: Document 01/01/21 12:41 OF (Rec: 01/01/21 12:46 OF [id number]) Therapeutic Exercises Standing Exercises monsterwalks Side bilateral Resistance tb3 Reps/Minutes 3x20ft sls Side right Equipment Used airex Reps/Minutes [id number] Comments cues for relaxed great toe, using whole foot for maintaining balance soleus stretch Side bilateral Reps/Minutes [id number] Comments cues for proper knee bend, slow stretch heel raise on step Side bilateral Reps/Minutes 3x10 Comments eccentric focus to neutral only, need shoes on at home gastroc stretch Standing Exercise Name runners stretch, JESÚS for extended knees Side bilateral Reps/Minutes [id number] Manual Therapy Treatment Soft Tissue Mobilization R great toe flexor Body Location including post tibialis today Mobilization Type Rolling,Sustained Pressure Intensity/Depth Moderate Body Position Prone Comments to tendon, pain with STM, 10min Joint Mobilizations great toe Joint MTP Direction sup/inf Grade III Body Position Prone Reps/Duration 10min MWM Joint ankle Direction post Grade III Body Position Standing Reps/Duration x10min Comments standing dorsiflexion from pt, post glide to talus talus Grade III Body Position Standing Reps/Duration x5 min Self-Care/Home Management Treatment Education Patient Education Home Exercise Program PT-OP-T Assessment and Plan Start: 12/10/20 15:32 Freq: Status: Active Protocol: Document 01/01/21 12:41 OF (Rec: 01/01/21 12:46 OF [id number]) Physical Therapy Assessment Rehab Potential Rehabilitation Potential Good Evaluation Complexity Number of Personal Factors/Comorbidities 0 Number of Body Systems Impaired 1-2 Clinical Presentation at Evaluation Stable Impairments Impairments Gait,Soft Tissue Mobility, Strength Goals 4 Impairment ankle weakness STG Duration Pt will improve ankle strength to 5/5 in all planes LTG Duration 6 weeks 3 Impairment loss of LE function Nursing Home Goal (LTG) Pt will improve LEFS score to >70/80 to demonstrate improved LE function 2 Impairment pain with prolonged walking Short Term Goal (STG) Pt will be able to walk 1mile with pain <2/10 STG Duration 2weeks Nursing Home Goal (LTG) Pt will be able to walk 3miles with pain <2/10 LTG Duration 6 weeks 1 Impairment pt has no HEP Short Term Goal (STG) Pt will be I with HEP to manage pain in R ankle and perform strengthening activity STG Duration 2 weeks Progress Towards Goals Progress Towards Goals Progressing Toward Goals Assessment Summary Assessment Gt is improving activity tolerance, using orthotics as instructed. He reports HEP as instructed, fewer instances of pain with ADL Physical Therapy Plan Frequency and Duration Frequency of Treatment 1x/Week Plan of Care Start Date 12/12/20 Plan of Care End Date 01/21/21 Therapeutic Interventions Therapeutic Interventions Gait Training,Home Exercise Program,Joint Mobilizations, Therapeutic Activities, Therapeutic Exercises Next Visit Focus/Plan Next Note Type Treatment Note Next Visit Plan consider lodi taping, progress hip strengthening, ankle mobs
--- NOTE | 2021-01-08 11:58 | PT.OTN ---
Current Diagnoses Sprain of unspecified ligament of right ankle, initial encounter (01/08/21) Physical Therapy Treatment Note PT-OP-A Visit Information Start: 12/10/20 15:32 Freq: Status: Active Protocol: Document 01/08/21 10:11 MA (Rec: 01/08/21 11:10 MA [id number]) Out-Patient Physical Therapy Visit Information Visit Information Visit Type Treatment Note Visit Start Time 10:15 Visit Stop Time 11:02 Total Visit Minutes 47 Visit Number 7 Number of FRONT MAKER LOCKSTITCH Visits 1 PT-OP-B Current Condition Start: 12/10/20 15:32 Freq: Status: Active Protocol: Document 12/10/20 12:01 OF (Rec: 12/10/20 15:50 OF [id number]) Current Condition History of Current Condition Onset Date high school History of Current Condition Pt states he injured ankle wrestling in high school, it has bothered him off/on since. The past few months have been worse. He has pain after work or exercise, rarely during exercise or activity Treatment Goals Patient/Caregiver Goals get my ankle back to normal Prior Functional Status Baseline Function- ADL's Independent Baseline Function- Mobility Independent Current Functional Impairments (Reported) Functional Limitations- ADL's pain with work, pain with exercise PT-OP-C Subjective Start: 12/10/20 15:32 Freq: Status: Active Protocol: Document 01/08/21 10:11 MA (Rec: 01/08/21 11:10 MA [id number]) OP-PT Subjective Patient Comments Patient Comments PT states his posterior tibilais is where the pain is. He occasionally uses compression sock for pain PT-OP-K Range of Motion Start: 12/10/20 15:32 Freq: Status: Active Protocol: Document 12/10/20 12:01 OF (Rec: 12/10/20 15:50 OF [id number]) Ankle and Foot Goniometric Range of Motion Ankle and Foot Left Ankle/Foot ROM WFL No Testing Position Sitting Dorsiflexion with Knee Flexed 15 Dorsiflexion with Knee Extended 15 Plantarflexion 30 Right Ankle/Foot ROM WFL No Testing Position Sitting Dorsiflexion with Knee Flexed 10 Dorsiflexion with Knee Extended 10 Plantarflexion 30 PT-OP-M Strength Start: 12/10/20 15:32 Freq: Status: Active Protocol: Document 12/10/20 12:01 OF (Rec: 12/10/20 15:50 OF [id number]) Ankle/Foot Strength Ankle and Foot Manual Muscle Testing Left Dorsiflexion (L4) 5 Normal Plantarflexion (S1) 5 Normal Inversion 5 Normal Eversion (S1) 5 Normal Right Dorsiflexion (L4) 4+ Good+ Plantarflexion (S1) 4+ Good+ Inversion 4 Good Eversion (S1) 4 Good PT-OP-Q Treatments Start: 12/10/20 15:32 Freq: Status: Active Protocol: Document 01/08/21 10:11 MA (Rec: 01/08/21 11:10 MA [id number]) Therapeutic Exercises Standing Exercises monsterwalks Side bilateral Resistance tb4 Reps/Minutes 3x20ft sls Side right Equipment Used airex Reps/Minutes [id number] Comments cues for relaxed great toe, using whole foot for maintaining balance soleus stretch Side bilateral Reps/Minutes [id number] Comments cues for proper knee bend, slow stretch heel raise on step Side bilateral Reps/Minutes 3x10 Comments eccentric focus to neutral only, need shoes on at home gastroc stretch Standing Exercise Name runners stretch, JESÚS for extended knees Side bilateral Reps/Minutes [id number] Manual Therapy Treatment Soft Tissue Mobilization R great toe flexor Body Location including post tibialis today Mobilization Type Rolling,Sustained Pressure Intensity/Depth Moderate Body Position Prone Comments to tendon, pain with STM, 10min Taping Low-Dye Body Location R foot/ankle PT-OP-T Assessment and Plan Start: 12/10/20 15:32 Freq: Status: Active Protocol: Document 01/08/21 10:11 MA (Rec: 01/08/21 11:10 MA [id number]) Physical Therapy Assessment Goals 4 Impairment ankle weakness STG Duration Pt will improve ankle strength to 5/5 in all planes LTG Duration 6 weeks 3 Impairment loss of LE function [facility] Goal (LTG) Pt will improve LEFS score to >70/80 to demonstrate improved LE function 2 Impairment pain with prolonged walking Short Term Goal (STG) Pt will be able to walk 1mile with pain <2/10 STG Duration 2weeks [facility] Goal (LTG) Pt will be able to walk 3miles with pain <2/10 LTG Duration 6 weeks 1 Impairment pt has no HEP Short Term Goal (STG) Pt will be I with HEP to manage pain in R ankle and perform strengthening activity STG Duration 2 weeks Assessment Summary Assessment Gt requested increasing theraband resistance today for monster walks. With increased ressitance, he required cues to keep knees wide to avoid IR femur and dropping arch R>L . Ended session by taping pt's foot in low-dye method for arch support. Pt will report next session if he feels tape helped support arch and decrease foot pain. Physical Therapy Plan Frequency and Duration Frequency of Treatment 1x/Week Plan of Care Start Date 12/12/20 Plan of Care End Date 01/21/21 Therapeutic Interventions Therapeutic Interventions Gait Training,Home Exercise Program,Joint Mobilizations, Therapeutic Activities, Therapeutic Exercises Next Visit Focus/Plan Next Note Type Treatment Note Next Visit Plan update POC, add more sessions if necassary; assess how taping felt, progress hip strengthening, ankle mobs
--- NOTE | 2021-01-15 12:53 | PT.OTN ---
Current Diagnoses Sprain of unspecified ligament of right ankle, initial encounter (01/15/21) Physical Therapy Treatment Note PT-OP-A Visit Information Start: 12/10/20 15:32 Freq: Status: Active Protocol: Document 01/15/21 12:44 OF (Rec: 01/15/21 12:53 OF [id number]) Out-Patient Physical Therapy Visit Information Visit Information Visit Type Treatment Note Visit Start Time 11:15 Visit Stop Time 11:58 Total Visit Minutes 43 Visit Number 8 Evaluation Information Evaluation Date 12/10/20 Precautions Precautions pt states he may be self pay due to high deductible PT-OP-B Current Condition Start: 12/10/20 15:32 Freq: Status: Active Protocol: Document 12/10/20 12:01 OF (Rec: 12/10/20 15:50 OF [id number]) Current Condition History of Current Condition Onset Date high school History of Current Condition Pt states he injured ankle wrestling in high school, it has bothered him off/on since. The past few months have been worse. He has pain after work or exercise, rarely during exercise or activity Treatment Goals Patient/Caregiver Goals get my ankle back to normal Prior Functional Status Baseline Function- ADL's Independent Baseline Function- Mobility Independent Current Functional Impairments (Reported) Functional Limitations- ADL's pain with work, pain with exercise PT-OP-C Subjective Start: 12/10/20 15:32 Freq: Status: Active Protocol: Document 01/15/21 12:44 OF (Rec: 01/15/21 12:53 OF [id number]) OP-PT Subjective Patient Comments Patient Comments pt reports taping was helpful for a few hrs beyond that painful so he removed Patient Reported Progress Improving OP-PT Pain Assessment Pain Assessment Grid Paper Pain Assessment Grid Completed No Location r ankle Pain Location Details 1 Intensity 1 Scale Used Numeric (0 - 10) Description Stabbing Frequency Occasional Pain Aggravating Factors Exercise,Stair Climbing PT-OP-K Range of Motion Start: 12/10/20 15:32 Freq: Status: Active Protocol: Document 12/10/20 12:01 OF (Rec: 12/10/20 15:50 OF [id number]) Ankle and Foot Goniometric Range of Motion Ankle and Foot Left Ankle/Foot ROM WFL No Testing Position Sitting Dorsiflexion with Knee Flexed 15 Dorsiflexion with Knee Extended 15 Plantarflexion 30 Right Ankle/Foot ROM WFL No Testing Position Sitting Dorsiflexion with Knee Flexed 10 Dorsiflexion with Knee Extended 10 Plantarflexion 30 PT-OP-M Strength Start: 12/10/20 15:32 Freq: Status: Active Protocol: Document 12/10/20 12:01 OF (Rec: 12/10/20 15:50 OF [id number]) Ankle/Foot Strength Ankle and Foot Manual Muscle Testing Left Dorsiflexion (L4) 5 Normal Plantarflexion (S1) 5 Normal Inversion 5 Normal Eversion (S1) 5 Normal Right Dorsiflexion (L4) 4+ Good+ Plantarflexion (S1) 4+ Good+ Inversion 4 Good Eversion (S1) 4 Good PT-OP-Q Treatments Start: 12/10/20 15:32 Freq: Status: Active Protocol: Document 01/15/21 12:44 OF (Rec: 01/15/21 12:53 OF [email or web address]) Therapeutic Exercises Standing Exercises monsterwalks Side bilateral Resistance tb4 Reps/Minutes 3x20ft Comments added posterior soleus stretch Side bilateral Reps/Minutes [id number] Comments cues for proper knee bend, slow stretch heel raise on step Side bilateral Reps/Minutes 3x10 Comments eccentric focus to neutral only, need shoes on at home gastroc stretch Standing Exercise Name runners stretch, JESÚS for extended knees Side bilateral Reps/Minutes [id number] Manual Therapy Treatment Soft Tissue Mobilization R great toe flexor Body Location post tibialis, plantar fascia, great toe flexor tendon Mobilization Type Rolling,Sustained Pressure Intensity/Depth Moderate Body Position Prone Comments to tendon, pain with STM, 10min Joint Mobilizations great toe Joint MTP Direction sup/inf Grade III Body Position Prone Reps/Duration 10min MWM Joint ankle Direction post Grade III Body Position Standing Reps/Duration x10min Comments standing dorsiflexion from pt, post glide to talus talus Grade III Body Position Standing Reps/Duration x5 min Self-Care/Home Management Treatment Education Patient Education Home Exercise Program PT-OP-T Assessment and Plan Start: 12/10/20 15:32 Freq: Status: Active Protocol: Document 01/15/21 12:44 OF (Rec: 01/15/21 12:53 OF [id number]) Physical Therapy Assessment Rehab Potential Rehabilitation Potential Good Evaluation Complexity Number of Personal Factors/Comorbidities 1-2 Number of Body Systems Impaired 1-2 Clinical Presentation at Evaluation Stable Impairments Impairments Gait,Soft Tissue Mobility, Strength Goals 4 Impairment ankle weakness [facility] Goal (LTG) Pt will improve ankle strength to 5/5 in all planes Progressing, 01/15/21 LTG Duration 6 weeks 3 Impairment loss of LE function Sheet Taker Goal (LTG) Pt will improve LEFS score to >70/80 to demonstrate improved LE function Progressing 01/15/21 2 Impairment pain with prolonged walking Short Term Goal (STG) Pt will be able to walk 1mile with pain <2/10 Goal met 01/15/21 STG Duration 2weeks Sheet Taker Goal (LTG) Pt will be able to walk 3miles with pain <2/10 Progressing LTG Duration 6 weeks 1 Impairment pt has no HEP Short Term Goal (STG) Pt will be I with HEP to manage pain in R ankle and perform strengthening activity STG Duration 2 weeks [facility] Goal (LTG) Progressing, pt requires cues for proper performance Progress Towards Goals Progress Towards Goals Progressing Toward Goals Assessment Summary Assessment Gt has continued to improve his foot-ankle pain. he rports walking a mile with pain 1/10. Using arch supports and stretching have improved symptoms. He would continue to benefit from skilled therapy to improve his dynamic control of R foot/ankle, improve stability on uneven surfaces, and reduce pain to return to hiking, walking without limitation. Physical Therapy Plan Frequency and Duration Frequency of Treatment 1x/Week Duration of Treatment 4 weeks Plan of Care Start Date 01/15/21 Plan of Care End Date 02/14/21 Therapeutic Interventions Therapeutic Interventions Gait Training,Home Exercise Program,Joint Mobilizations, Therapeutic Activities, Therapeutic Exercises Next Visit Focus/Plan Next Note Type Treatment Note Next Visit Plan Progress dynamic balance training, arch stability, MWM for dorsiflexion, post tib STM
--- NOTE | 2021-01-15 12:53 | PT.OPPOC ---
Physical, Occupational & Speech Therapy At [facility] Current Diagnoses Sprain of unspecified ligament of right ankle, initial encounter (01/15/21) Visit Care Team Role Provider Type Mario Dsouza MD Attending Provider Physician Primary Care Provider Referring Provider Specialty: Family Practice Address: [address] [place] [address], [facility] Email: [email or web address] Plan Of Care PT-OP-T Assessment and Plan Start: 12/10/20 15:32 Freq: Status: Active Protocol: Document 01/15/21 12:44 OF (Rec: 01/15/21 12:53 OF [id number]) Physical Therapy Assessment Rehab Potential Rehabilitation Potential Good Evaluation Complexity Number of Personal Factors/Comorbidities 1-2 Number of Body Systems Impaired 1-2 Clinical Presentation at Evaluation Stable Impairments Impairments Gait,Soft Tissue Mobility, Strength Goals 4 Impairment ankle weakness [facility]sp Goal (LTG) Pt will improve ankle strength to 5/5 in all planes Progressing, 01/15/21 LTG Duration 6 weeks 3 Impairment loss of LE function [facility]sp Goal (LTG) Pt will improve LEFS score to >70/80 to demonstrate improved LE function Progressing 01/15/21 2 Impairment pain with prolonged walking Short Term Goal (STG) Pt will be able to walk 1mile with pain <2/10 Goal met 01/15/21 STG Duration 2weeks Map Compiler Goal (LTG) Pt will be able to walk 3miles with pain <2/10 Progressing LTG Duration 6 weeks 1 Impairment pt has no HEP Short Term Goal (STG) Pt will be I with HEP to manage pain in R ankle and perform strengthening activity STG Duration 2 weeks Map Compiler Goal (LTG) Progressing, pt requires cues for proper performance Progress Towards Goals Progress Towards Goals Progressing Toward Goals Assessment Summary Assessment Gt has continued to improve his foot-ankle pain. he rports walking a mile with pain 1/10. Using arch supports and stretching have improved symptoms. He would continue to benefit from skilled therapy to improve his dynamic control of R foot/ankle, improve stability on uneven surfaces, and reduce pain to return to hiking, walking without limitation. Physical Therapy Plan Frequency and Duration Frequency of Treatment 1x/Week Duration of Treatment 4 weeks Plan of Care Start Date 01/15/21 Plan of Care End Date 02/14/21 Therapeutic Interventions Therapeutic Interventions Gait Training,Home Exercise Program,Joint Mobilizations, Therapeutic Activities, Therapeutic Exercises Next Visit Focus/Plan Next Note Type Treatment Note Next Visit Plan Progress dynamic balance training, arch stability, MWM for dorsiflexion, post tib STM Plan of Care Dates Plan of Care Start Date 01/15/21 Plan of Care End Date 02/14/21 Electronically Signed by: Stephen Ornelas, PT 01/15/21 1069 Please Sign and Return: I have reviewed this Plan of Care and certify that the skilled therapy services above are required to meet the patient?s needs. Physician Signature Date Printed Name and Credentials Clinical Instructor Signature Printed Name and Credentials
--- NOTE | 2021-01-24 11:20 | PT.OTN ---
Current Diagnoses Sprain of unspecified ligament of right ankle, initial encounter (01/24/21) Physical Therapy Treatment Note PT-OP-A Visit Information Start: 12/10/20 15:32 Freq: Status: Active Protocol: Document 01/24/21 10:23 MA (Rec: 01/24/21 11:16 MA [id number]) Out-Patient Physical Therapy Visit Information Visit Information Visit Type Treatment Note Visit Start Time 10:25 Visit Stop Time 11:10 Total Visit Minutes 45 Visit Number 9 Number of SYSTEMS SUPPORT ENGINEER Visits 1 Precautions Precautions pt states he may be self pay due to high deductible PT-OP-B Current Condition Start: 12/10/20 15:32 Freq: Status: Active Protocol: Document 12/10/20 12:01 OF (Rec: 12/10/20 15:50 OF [id number]) Current Condition History of Current Condition Onset Date high school History of Current Condition Pt states he injured ankle wrestling in high school, it has bothered him off/on since. The past few months have been worse. He has pain after work or exercise, rarely during exercise or activity Treatment Goals Patient/Caregiver Goals get my ankle back to normal Prior Functional Status Baseline Function- ADL's Independent Baseline Function- Mobility Independent Current Functional Impairments (Reported) Functional Limitations- ADL's pain with work, pain with exercise PT-OP-C Subjective Start: 12/10/20 15:32 Freq: Status: Active Protocol: Document 01/24/21 10:23 MA (Rec: 01/24/21 11:16 MA [id number]) OP-PT Subjective Patient Comments Patient Comments Pt reports his pain is back around the malleolus PT-OP-K Range of Motion Start: 12/10/20 15:32 Freq: Status: Active Protocol: Document 12/10/20 12:01 OF (Rec: 12/10/20 15:50 OF [id number]) Ankle and Foot Goniometric Range of Motion Ankle and Foot Left Ankle/Foot ROM WFL No Testing Position Sitting Dorsiflexion with Knee Flexed 15 Dorsiflexion with Knee Extended 15 Plantarflexion 30 Right Ankle/Foot ROM WFL No Testing Position Sitting Dorsiflexion with Knee Flexed 10 Dorsiflexion with Knee Extended 10 Plantarflexion 30 PT-OP-M Strength Start: 12/10/20 15:32 Freq: Status: Active Protocol: Document 12/10/20 12:01 OF (Rec: 12/10/20 15:50 OF [id number]) Ankle/Foot Strength Ankle and Foot Manual Muscle Testing Left Dorsiflexion (L4) 5 Normal Plantarflexion (S1) 5 Normal Inversion 5 Normal Eversion (S1) 5 Normal Right Dorsiflexion (L4) 4+ Good+ Plantarflexion (S1) 4+ Good+ Inversion 4 Good Eversion (S1) 4 Good PT-OP-Q Treatments Start: 12/10/20 15:32 Freq: Status: Active Protocol: Document 01/24/21 10:23 MA (Rec: 01/24/21 11:16 MA [id number]) Therapeutic Exercises Sitting Exercises Inversion Equipment Used lvl 1 TB Reps/Minutes x10 Comments cues for proper movement Towel Scrunches Equipment Used towel Reps/Minutes 4' Standing Exercises Arch Lifts Reps/Minutes 2' Comments using mirror for feedback soleus stretch Side bilateral Reps/Minutes [id number] Comments cues for proper knee bend, slow stretch gastroc stretch Standing Exercise Name runners stretch, JESÚS for extended knees Side bilateral Reps/Minutes [id number] Manual Therapy Treatment Soft Tissue Mobilization R great toe flexor Body Location post tibialis, plantar fascia, great toe flexor tendon Mobilization Type Rolling,Sustained Pressure Intensity/Depth Moderate Body Position Prone Comments to tendon, pain with STM, 10min Self-Care/Home Management Treatment Education Patient Education Home Exercise Program Other Education Added towel scrunches and resisted inversion to HEP along with arch lifts in standing, gastroc, and soleus stretches. Used mirror for feedback with pt showing improved form when able to watch in mirror PT-OP-T Assessment and Plan Start: 12/10/20 15:32 Freq: Status: Active Protocol: Document 01/24/21 10:23 MA (Rec: 01/24/21 11:16 MA [id number]) Physical Therapy Assessment Goals 4 Impairment ankle weakness Aircraft Manager Goal (LTG) Pt will improve ankle strength to 5/5 in all planes Progressing, 01/15/21 LTG Duration 6 weeks 3 Impairment loss of LE function Aircraft Manager Goal (LTG) Pt will improve LEFS score to >70/80 to demonstrate improved LE function Progressing 01/15/21 2 Impairment pain with prolonged walking Short Term Goal (STG) Pt will be able to walk 1mile with pain <2/10 Goal met 01/15/21 STG Duration 2weeks Aircraft Manager Goal (LTG) Pt will be able to walk 3miles with pain <2/10 Progressing LTG Duration 6 weeks 1 Impairment pt has no HEP Short Term Goal (STG) Pt will be I with HEP to manage pain in R ankle and perform strengthening activity STG Duration 2 weeks Mcfp Goal (LTG) Progressing, pt requires cues for proper performance Assessment Summary Assessment Gt arrives with increased R foot pain to session. His pain decreases after stretches and STM. Worked on arch lifts in seated and standing using mirror for feedback with pt showing improved form when able to watch in mirror. Discussed foot mechanics with pt as pt likes to fully understand each exercise and how mms work. Physical Therapy Plan Frequency and Duration Frequency of Treatment 1x/Week Duration of Treatment 4 weeks Plan of Care Start Date 01/15/21 Plan of Care End Date 02/14/21 Therapeutic Interventions Therapeutic Interventions Gait Training,Home Exercise Program,Joint Mobilizations, Therapeutic Activities, Therapeutic Exercises Next Visit Focus/Plan Next Note Type Treatment Note Next Visit Plan Review HEP, try shuttle balance Progress dynamic balance training, arch stability, MWM for dorsiflexion, post tib STM
--- NOTE | 2021-01-31 12:01 | PT.OTN ---
Current Diagnoses Sprain of unspecified ligament of right ankle, initial encounter (01/31/21) Physical Therapy Treatment Note PT-OP-A Visit Information Start: 12/10/20 15:32 Freq: Status: Active Protocol: Document 01/31/21 11:11 MA (Rec: 01/31/21 12:00 MA [id number]) Out-Patient Physical Therapy Visit Information Visit Information Visit Type Treatment Note Visit Start Time 11:11 Visit Stop Time 11:55 Total Visit Minutes 44 Visit Number 10 Number of ROUTE SUPERVISOR Visits 2 Precautions Precautions pt states he may be self pay due to high deductible PT-OP-B Current Condition Start: 12/10/20 15:32 Freq: Status: Active Protocol: Document 12/10/20 12:01 OF (Rec: 12/10/20 15:50 OF [id number]) Current Condition History of Current Condition Onset Date high school History of Current Condition Pt states he injured ankle wrestling in high school, it has bothered him off/on since. The past few months have been worse. He has pain after work or exercise, rarely during exercise or activity Treatment Goals Patient/Caregiver Goals get my ankle back to normal Prior Functional Status Baseline Function- ADL's Independent Baseline Function- Mobility Independent Current Functional Impairments (Reported) Functional Limitations- ADL's pain with work, pain with exercise PT-OP-C Subjective Start: 12/10/20 15:32 Freq: Status: Active Protocol: Document 01/31/21 11:11 MA (Rec: 01/31/21 12:00 MA [id number]) OP-PT Subjective Patient Comments Patient Comments Pt reports pain improving but he has been more sedentary this week which may have helped pain. PT-OP-K Range of Motion Start: 12/10/20 15:32 Freq: Status: Active Protocol: Document 12/10/20 12:01 OF (Rec: 12/10/20 15:50 OF [id number]) Ankle and Foot Goniometric Range of Motion Ankle and Foot Left Ankle/Foot ROM WFL No Testing Position Sitting Dorsiflexion with Knee Flexed 15 Dorsiflexion with Knee Extended 15 Plantarflexion 30 Right Ankle/Foot ROM WFL No Testing Position Sitting Dorsiflexion with Knee Flexed 10 Dorsiflexion with Knee Extended 10 Plantarflexion 30 PT-OP-M Strength Start: 12/10/20 15:32 Freq: Status: Active Protocol: Document 12/10/20 12:01 OF (Rec: 12/10/20 15:50 OF [id number]) Ankle/Foot Strength Ankle and Foot Manual Muscle Testing Left Dorsiflexion (L4) 5 Normal Plantarflexion (S1) 5 Normal Inversion 5 Normal Eversion (S1) 5 Normal Right Dorsiflexion (L4) 4+ Good+ Plantarflexion (S1) 4+ Good+ Inversion 4 Good Eversion (S1) 4 Good PT-OP-Q Treatments Start: 12/10/20 15:32 Freq: Status: Active Protocol: Document 01/31/21 11:11 MA (Rec: 01/31/21 12:00 MA [id number]) Therapeutic Exercises Sitting Exercises Inversion Equipment Used lvl 1 TB Reps/Minutes x10 Comments cues for proper movement Towel Scrunches Equipment Used towel Reps/Minutes 4' Standing Exercises Arch Lifts Reps/Minutes 2' Comments using mirror for feedback sls Side right Equipment Used airex Reps/Minutes 2x30 sec soleus stretch Side bilateral Reps/Minutes [id number] Comments cues for proper knee bend, slow stretch heel raise on step Side bilateral Reps/Minutes 3x10 Comments eccentric focus to neutral only, need shoes on at home gastroc stretch Standing Exercise Name runners stretch Side bilateral Reps/Minutes [id number] Manual Therapy Treatment Soft Tissue Mobilization R great toe flexor Body Location post tibialis, plantar fascia, great toe flexor tendon Mobilization Type Rolling,Sustained Pressure Intensity/Depth Moderate Body Position Prone Comments to tendon, pain with STM, 10min Neuro Re-Education Treatment Balance Activities SLS Details Focusing on R arch lift Surface solid Reps/Duration 3x30 sec PT-OP-T Assessment and Plan Start: 12/10/20 15:32 Freq: Status: Active Protocol: Document 01/31/21 11:11 MA (Rec: 01/31/21 12:00 MA [id number]) Physical Therapy Assessment Goals 4 Impairment ankle weakness Biodiesel Engine Specialist Goal (LTG) Pt will improve ankle strength to 5/5 in all planes Progressing, 01/15/21 LTG Duration 6 weeks 3 Impairment loss of LE function Biodiesel Engine Specialist Goal (LTG) Pt will improve LEFS score to >70/80 to demonstrate improved LE function Progressing 01/15/21 2 Impairment pain with prolonged walking Short Term Goal (STG) Pt will be able to walk 1mile with pain <2/10 Goal met 01/15/21 STG Duration 2weeks Biodiesel Engine Specialist Goal (LTG) Pt will be able to walk 3miles with pain <2/10 Progressing LTG Duration 6 weeks 1 Impairment pt has no HEP Short Term Goal (STG) Pt will be I with HEP to manage pain in R ankle and perform strengthening activity STG Duration 2 weeks Long-Term Goal (LTG) Progressing, pt requires cues for proper performance Assessment Summary Assessment Gt feels his pain has improved overall. He deomstrates good ability to correctly perform arch lift exercises this session. He is challenged by keeping proper foot alignment during SLS especially when on uneven surfaces. Physical Therapy Plan Frequency and Duration Frequency of Treatment 1x/Week Duration of Treatment 4 weeks Plan of Care Start Date 01/15/21 Plan of Care End Date 02/14/21 Therapeutic Interventions Therapeutic Interventions Gait Training,Home Exercise Program,Joint Mobilizations, Therapeutic Activities, Therapeutic Exercises Next Visit Focus/Plan Next Note Type Treatment Note Next Visit Plan Squats focusing on arch lift Progress dynamic balance training, arch stability, MWM for dorsiflexion, post tib STM
--- NOTE | 2021-02-07 12:59 | PT.OTN ---
Current Diagnoses Sprain of unspecified ligament of right ankle, initial encounter (02/07/21) Physical Therapy Treatment Note PT-OP-A Visit Information Start: 12/10/20 15:32 Freq: Status: Active Protocol: Document 02/07/21 11:13 MA (Rec: 02/07/21 12:00 MA [id number]) Out-Patient Physical Therapy Visit Information Visit Information Visit Type Treatment Note Visit Start Time 11:15 Visit Stop Time 11:58 Total Visit Minutes 43 Visit Number 11 Number of POULTRY CLEANER Visits 3 Precautions Precautions pt states he may be self pay due to high deductible PT-OP-B Current Condition Start: 12/10/20 15:32 Freq: Status: Active Protocol: Document 12/10/20 12:01 OF (Rec: 12/10/20 15:50 OF [id number]) Current Condition History of Current Condition Onset Date high school History of Current Condition Pt states he injured ankle wrestling in high school, it has bothered him off/on since. The past few months have been worse. He has pain after work or exercise, rarely during exercise or activity Treatment Goals Patient/Caregiver Goals get my ankle back to normal Prior Functional Status Baseline Function- ADL's Independent Baseline Function- Mobility Independent Current Functional Impairments (Reported) Functional Limitations- ADL's pain with work, pain with exercise PT-OP-C Subjective Start: 12/10/20 15:32 Freq: Status: Active Protocol: Document 02/07/21 11:13 MA (Rec: 02/07/21 12:00 MA [id number]) OP-PT Subjective Patient Comments Patient Comments Pt states, I have had a pain free week. Patient Questionnaires Lower Extremity Functional Scale LEFS Impairment 20 to 39% Impaired (Score 48- 62) PT-OP-K Range of Motion Start: 12/10/20 15:32 Freq: Status: Active Protocol: Document 12/10/20 12:01 OF (Rec: 12/10/20 15:50 OF [id number]) Ankle and Foot Goniometric Range of Motion Ankle and Foot Left Ankle/Foot ROM WFL No Testing Position Sitting Dorsiflexion with Knee Flexed 15 Dorsiflexion with Knee Extended 15 Plantarflexion 30 Right Ankle/Foot ROM WFL No Testing Position Sitting Dorsiflexion with Knee Flexed 10 Dorsiflexion with Knee Extended 10 Plantarflexion 30 PT-OP-M Strength Start: 12/10/20 15:32 Freq: Status: Active Protocol: Document 12/10/20 12:01 OF (Rec: 12/10/20 15:50 OF [id number]) Ankle/Foot Strength Ankle and Foot Manual Muscle Testing Left Dorsiflexion (L4) 5 Normal Plantarflexion (S1) 5 Normal Inversion 5 Normal Eversion (S1) 5 Normal Right Dorsiflexion (L4) 4+ Good+ Plantarflexion (S1) 4+ Good+ Inversion 4 Good Eversion (S1) 4 Good PT-OP-Q Treatments Start: 12/10/20 15:32 Freq: Status: Active Protocol: Document 02/07/21 11:13 MA (Rec: 02/07/21 12:00 MA [id number]) Cardio Equipment Treadmill Duration (Minutes) 8 Speed 2.2-4.0 Incline 0 Other 90 second jog at 4.0- total distance .36 Therapeutic Exercises Standing Exercises Speed Skaters Standing Exercise Name slow speed skaters Side bilateral Reps/Minutes 2x 1' Arch Lifts Reps/Minutes 2' Comments using mirror for feedback sls Side right Equipment Used airex Reps/Minutes 2x30 sec heel raise on step Standing Exercise Name SL from floor this session Side bilateral Reps/Minutes x10 Comments watching foot/ankle position in mirror PT-OP-T Assessment and Plan Start: 12/10/20 15:32 Freq: Status: Active Protocol: Document 02/07/21 11:13 MA (Rec: 02/07/21 12:00 MA [id number]) Physical Therapy Assessment Goals 4 Impairment ankle weakness Long-Term Goal (LTG) Pt will improve ankle strength to 5/5 in all planes Progressing, 01/15/21 LTG Duration 6 weeks 3 Impairment loss of LE function Index Editor Goal (LTG) Pt will improve LEFS score to >70/80 to demonstrate improved LE function Progressing 01/15/21 02/07/21- score 57 2 Impairment pain with prolonged walking Short Term Goal (STG) Pt will be able to walk 1mile with pain <2/10 Goal met 01/15/21 STG Duration 2weeks Index Editor Goal (LTG) Pt will be able to walk 3miles with pain <2/10 Progressing LTG Duration 6 weeks 1 Impairment pt has no HEP Short Term Goal (STG) Pt will be I with HEP to manage pain in R ankle and perform strengthening activity STG Duration 2 weeks Long-Term Goal (LTG) Progressing, pt requires cues for proper performance Assessment Summary Assessment Gt was able to walk on treadmill today for 8 minutes without pain. He bought a recumbant bike to begin getting back into cardio at home. Encouraged pt to try 1 mile walk before next appt to report any increase in R foot/ ankle pain. During exercises it is discovered that Gt has limited L PF. This decreased ROM affects his push off during gait, causing him to land heavily on R foot when jogging. Will begin L ankle mobs next session to increase L PF and decrease R foot pain. Physical Therapy Plan Frequency and Duration Frequency of Treatment 1x/Week Duration of Treatment 4 weeks Plan of Care Start Date 01/15/21 Plan of Care End Date 02/14/21 Therapeutic Interventions Therapeutic Interventions Gait Training,Home Exercise Program,Joint Mobilizations, Therapeutic Activities, Therapeutic Exercises Next Visit Focus/Plan Next Note Type Progress Note Next Visit Plan Update POC L ankle mobs to increase PF, increase walking distance on treadmill, arch stability, dynamic balance- speed skaters , balance on uneven surfaces
--- NOTE | 2021-02-19 12:36 | PT.OTN ---
Current Diagnoses Sprain of unspecified ligament of right ankle, initial encounter (02/19/21) Physical Therapy Treatment Note PT-OP-A Visit Information Start: 12/10/20 15:32 Freq: Status: Active Protocol: Document 02/19/21 11:20 HH (Rec: 02/19/21 12:35 HH [id number]) Out-Patient Physical Therapy Visit Information Visit Information Visit Type Progress Note Visit Start Time 11:15 Visit Stop Time 12:00 Total Visit Minutes 45 Visit Number 12 Number of MAINTENANCE APPRENTICE Visits 0 PT-OP-B Current Condition Start: 12/10/20 15:32 Freq: Status: Active Protocol: Document 12/10/20 12:01 OF (Rec: 12/10/20 15:50 OF [id number]) Current Condition History of Current Condition Onset Date high school History of Current Condition Pt states he injured ankle wrestling in high school, it has bothered him off/on since. The past few months have been worse. He has pain after work or exercise, rarely during exercise or activity Treatment Goals Patient/Caregiver Goals get my ankle back to normal Prior Functional Status Baseline Function- ADL's Independent Baseline Function- Mobility Independent Current Functional Impairments (Reported) Functional Limitations- ADL's pain with work, pain with exercise PT-OP-C Subjective Start: 12/10/20 15:32 Freq: Status: Active Protocol: Document 02/19/21 11:20 HH (Rec: 02/19/21 12:35 HH [id number]) OP-PT Subjective Patient Comments Patient Comments Im doing pretty good. I had a pain free week. I have been able to walk around the [facility] but i can feel the discomfort at the malleolus after 1.5 mile. I can walk without a limp. Patient Reported Progress Improving PT-OP-K Range of Motion Start: 12/10/20 15:32 Freq: Status: Active Protocol: Document 02/19/21 11:20 HH (Rec: 02/19/21 12:35 HH [id number]) Ankle and Foot Goniometric Range of Motion Ankle and Foot Left Ankle/Foot ROM WFL No Testing Position Sitting Dorsiflexion with Knee Flexed 15 Dorsiflexion with Knee Extended 9 Plantarflexion 47 Right Ankle/Foot ROM WFL No Testing Position Sitting Dorsiflexion with Knee Flexed 10 Dorsiflexion with Knee Extended 7 Plantarflexion 45 PT-OP-M Strength Start: 12/10/20 15:32 Freq: Status: Active Protocol: Document 02/19/21 11:20 HH (Rec: 02/19/21 12:35 [id number]) Ankle/Foot Strength Ankle and Foot Manual Muscle Testing Left Dorsiflexion (L4) 5 Normal Plantarflexion (S1) 5 Normal Inversion 5 Normal Eversion (S1) 5 Normal Right Dorsiflexion (L4) 4+ Good+ Plantarflexion (S1) 4+ Good+ Inversion 4 Good Eversion (S1) 4 Good PT-OP-Q Treatments Start: 12/10/20 15:32 Freq: Status: Active Protocol: Document 02/19/21 11:20 HH (Rec: 02/19/21 12:35 [id number]) Therapeutic Exercises Standing Exercises ankle PF stretch Side bilateral Reps/Minutes 30s x 5 Comments for HEP soleus stretch Side bilateral Reps/Minutes [id number] Comments cues for proper knee bend, slow stretch gastroc stretch Standing Exercise Name runners stretch Side bilateral Reps/Minutes [id number] Gait Training Gait Activity ground level Description split stance Surface ground level Distance/Duration in place Comments no shoes. focus on heel strike and toe push off. Ankle rocking motion Manual Therapy Treatment Soft Tissue Mobilization ant tib Mobilization Type Myofascial Release Intensity/Depth Moderate Body Position Supine R great toe flexor Body Location post tibialis, plantar fascia, great toe flexor tendon Mobilization Type Rolling,Sustained Pressure Intensity/Depth Moderate Body Position Prone Comments to tendon, pain with STM, 10min PT-OP-T Assessment and Plan Start: 12/10/20 15:32 Freq: Status: Active Protocol: Document 02/19/21 11:20 (Rec: 02/19/21 12:35 [id number]) Physical Therapy Assessment Goals 4 Impairment ankle weakness Group Home Goal (LTG) Pt will improve ankle strength to 5/5 in all planes Progressing, 01/15/21 LTG Duration 6 weeks 3 Impairment loss of LE function Fugitive Detective Goal (LTG) Pt will improve LEFS score to >70/80 to demonstrate improved LE function Progressing 01/15/21 02/07/21- score 57 2 Impairment pain with prolonged walking Short Term Goal (STG) Pt will be able to walk 1mile with pain <2/10 Goal met 01/15/21 STG Duration 2weeks Group Home Goal (LTG) Pt will be able to walk 3miles with pain <2/10 Progressing LTG Duration 6 weeks 1 Impairment pt has no HEP Short Term Goal (STG) Pt will be I with HEP to manage pain in R ankle and perform strengthening activity STG Duration 2 weeks Group Home Goal (LTG) Progressing, pt requires cues for proper performance Assessment Summary Assessment pt has been walking with less pain. Spent time on gait training today for ankle rocking motion to allow toe push off. He still has limited ankle DF, PF so I consolidated his HEP today. Expect pt to progress consistently and possible dc him next visit (march) Physical Therapy Plan Frequency and Duration Frequency of Treatment 1x/month Duration of Treatment 6 weeks Plan of Care Start Date 02/19/21 Plan of Care End Date 04/05/21 Therapeutic Interventions Therapeutic Interventions Gait Training,Home Exercise Program,Joint Mobilizations, Therapeutic Activities, Therapeutic Exercises Next Visit Focus/Plan Next Note Type Progress Note Next Visit Plan Update POC L ankle mobs to increase PF, increase walking distance on treadmill, arch stability, dynamic balance- speed skaters , balance on uneven surfaces
--- NOTE | 2021-02-19 12:37 | PT.OPPOC ---
Physical, Occupational & Speech Therapy At [facility] Current Diagnoses Sprain of unspecified ligament of right ankle, initial encounter (02/19/21) Visit Care Team Role Provider Type Mario Dsouza MD Attending Provider Physician Primary Care Provider Referring Provider Specialty: Family Practice Address: [address] [place] [address], [facility] Email: [email or web address] Plan Of Care PT-OP-T Assessment and Plan Start: 12/10/20 15:32 Freq: Status: Active Protocol: Document 02/19/21 11:20 HH (Rec: 02/19/21 12:35 HH [id number]) Physical Therapy Assessment Goals 4 Impairment ankle weakness Road Supervisor Of Engines Goal (LTG) Pt will improve ankle strength to 5/5 in all planes Progressing, 01/15/21 LTG Duration 6 weeks 3 Impairment loss of LE function Road Supervisor Of Engines Goal (LTG) Pt will improve LEFS score to >70/80 to demonstrate improved LE function Progressing 01/15/21 02/07/21- score 57 2 Impairment pain with prolonged walking Short Term Goal (STG) Pt will be able to walk 1mile with pain <2/10 Goal met 01/15/21 STG Duration 2weeks Road Supervisor Of Engines Goal (LTG) Pt will be able to walk 3miles with pain <2/10 Progressing LTG Duration 6 weeks 1 Impairment pt has no HEP Short Term Goal (STG) Pt will be I with HEP to manage pain in R ankle and perform strengthening activity STG Duration [address] Supervisor Of Engines Goal (LTG) Progressing, pt requires cues for proper performance Assessment Summary Assessment pt has been walking with less pain. Spent time on gait training today for ankle rocking motion to allow toe push off. He still has limited ankle DF, PF so I consolidated his HEP today. Expect pt to progress consistently and possible dc him next visit (march) Physical Therapy Plan Frequency and Duration Frequency of Treatment 1x/month Duration of Treatment 6 weeks Plan of Care Start Date 02/19/21 Plan of Care End Date 04/05/21 Therapeutic Interventions Therapeutic Interventions Gait Training,Home Exercise Program,Joint Mobilizations, Therapeutic Activities, Therapeutic Exercises Next Visit Focus/Plan Next Note Type Progress Note Next Visit Plan Update POC L ankle mobs to increase PF, increase walking distance on treadmill, arch stability, dynamic balance- speed skaters , balance on uneven surfaces Plan of Care Dates Plan of Care Start Date 02/19/21 Plan of Care End Date 04/05/21 Electronically Signed by: Jimena Espinosa PT 02/19/21 [id number] Please Sign and Return: I have reviewed this Plan of Care and certify that the skilled therapy services above are required to meet the patient?s needs. Physician Signature Date Printed Name and Credentials Clinical Instructor Signature Printed Name and Credentials
--- NOTE | 2021-03-24 12:11 | PT.OTN ---
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 The past few months have been worse. He has pain after work or exercise, rarely during exercise or activity Treatment Goals Patient/Caregiver Goals get my ankle back to normal Prior Functional Status Baseline Function- ADL's Independent Baseline Function- Mobility Independent Current Functional Impairments (Reported) Functional Limitations- ADL's pain with work, pain with exercise PT-OP-C Subjective Start: 12/10/20 15:32 Freq: Status: Active Protocol: Document 03/24/21 11:22 HH (Rec: 03/24/21 12:10 HH [id number]) OP-PT Subjective Patient Comments Patient Comments My pain is getting better. I can walk 2 miles pretty good so far. I can only feel the discomfort probably at the end of 1/4 mile. Patient Reported Progress Improving PT-OP-K Range of Motion Start: 12/10/20 15:32 Freq: Status: Active Protocol: Document 02/19/21 11:20 HH (Rec: 02/19/21 12:35 HH [id number]) Ankle and Foot Goniometric Range of Motion Ankle and Foot Left Ankle/Foot ROM WFL No Testing Position Sitting Dorsiflexion with Knee Flexed 15 Dorsiflexion with Knee Extended 9 Plantarflexion 47 Right Ankle/Foot ROM WFL No Testing Position Sitting Dorsiflexion with Knee Flexed 10 Dorsiflexion with Knee Extended 7 Plantarflexion 45 PT-OP-M Strength Start: 12/10/20 15:32 Freq: Status: Active Protocol: Document 02/19/21 11:20 HH (Rec: 02/19/21 12:35 [id number]) Ankle/Foot Strength Ankle and Foot Manual Muscle Testing Left Dorsiflexion (L4) 5 Normal Plantarflexion (S1) 5 Normal Inversion 5 Normal Eversion (S1) 5 Normal Right Dorsiflexion (L4) 4+ Good+ Plantarflexion (S1) 4+ Good+ Inversion 4 Good Eversion (S1) 4 Good PT-OP-Q Treatments Start: 12/10/20 15:32 Freq: Status: Active Protocol: Document 03/24/21 11:22 HH (Rec: 03/24/21 12:10 [id number]) Therapeutic Exercises Standing Exercises MTP flexion extension Side bilateral Comments for HEP ankle PF stretch Side bilateral Reps/Minutes 30s x 5 Comments for HEP gastroc stretch Standing Exercise Name runners stretch Side bilateral Reps/Minutes [id number] Gait Training Gait Activity ground level Description split stance Surface ground level Distance/Duration in place Comments no shoes. focus on heel strike and toe push off. 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 (LTG) Pt will improve LEFS score to >70/80 to demonstrate improved LE function Progressing 01/15/21 02/07/21- score 57 2 Impairment pain with prolonged walking Short Term Goal (STG) Pt will be able to walk 1mile with pain <2/10 Goal met 01/15/21 STG Duration 2weeks [facility] Goal (LTG) 12/5 goal met Pt is able to walk 3miles with pain <2/10 Progressing LTG Duration 6 weeks 1 Impairment pt has no HEP Short Term Goal (STG) Pt will be I with HEP to manage pain in R ankle and perform strengthening activity STG Duration 2 weeks [facility] Goal (LTG) 126 goal met nocues need for all HEP Assessment Summary Assessment pt has progressing very well with minimal pain and increased activitiy tolerance. His gait has better utilization of MTP flexion and extension. He stated he is capable to self manage his symptoms at this point. Agreed to be DC from PT today. Physical Therapy Plan Frequency and Duration Frequency of Treatment 1x/month Duration of Treatment 6 weeks Plan of Care Start Date 02/19/21 Plan of Care End Date 04/05/21 Therapeutic Interventions Therapeutic Interventions Gait Training,Home Exercise Program,Joint Mobilizations, Therapeutic Activities, Therapeutic Exercises Next Visit Focus/Plan Next Note Type Progress Note Next Visit Plan Update POC L ankle mobs to increase PF, increase walking distance on treadmill, arch stability, dynamic balance- speed skaters , balance on uneven surfaces
== END 2021-05-20 09:30 ==
LOC: PHYS 11:15
PROVIDERS: PCP Family Medicine; Referring Provider Family Medicine; Visit Provider Family Medicine
DX: S93.401A Sprain of unspecified ligament of right ankle, initial encounter (principal)
CPT/HCPCS: 97110; 97112; 97116; 97140; 97161; 97535

== ENCOUNTER → 2022-05-05 09:23 | Outpatient (CLI) | payer OTHER, SELFPAY ==
[2022-05-05 10:02] LABS: Add Manual Diff / Slide Review NO; Basophils Absolute Auto 0 /uL (0-100); Basophils Percent Auto 0.5 % (0-2); Eosinophils Absolute Auto 100 /uL (0-450); Hematocrit 44.1 % (41-53); Hemoglobin 15.1 g/dL (13.5-17.5); Lymphocytes Absolute Auto 1100 /uL (1100-4500); Lymphocytes Percent Auto 21.1 % (25-40); Mean Corpuscular HGB Conc 34.3 % (30-36); Mean Corpuscular Hemoglobin 31.5 PG (26-34); Mean Corpuscular Volume 91.8 fL (80-100); Monocytes Absolute Auto 600 /uL (0-900); Monocytes Percent Auto 10.7 % (3-14); Neutrophils Absolute Auto 3500 /uL (1500-7000); Neutrophils Percent Auto 65.7 % (50-75); Platelet Count 231 X10^3/uL (150-400); Red Blood Cell Count 4.81 X10^6/uL (4.5-5.9); Red Cell Distribution Width 12.7 % (11.6-14.8); White Blood Cell Count 5.3 X10^3/uL (4.5-11.0)
[2022-05-05 10:20] LABS: Alanine Aminotransferase 38 IU/L (<50); Alkaline Phosphatase 62 U/L (38-126); Aspartate Aminotransferase 30 IU/L (17-59); Bilirubin Total 2.2 mg/dL (0.2-1.3); Blood Urea Nitrogen 20 mg/dL (9-20); Calcium 9.3 mg/dL (8.4-10.2); Carbon Dioxide 28 mmol/L (22-32); Chloride 101 mmol/L (98-107); Cholesterol 194 mg/dL (140-199); Estimated Glomerular Filt Rate > 60 mL/min (>60); Glucose 97 mg/dL (80-110); HDL Cholesterol 43 mg/dL (40-60); HEMOLYSIS < 15 (0-50); LDL Cholesterol Calculated 124 mg/dL (<100); Potassium 4.4 mmol/L (3.4-5.1); Sodium 139 mmol/L (137-145); Total Protein 7.9 g/dL (6.3-8.2); Triglycerides 137 mg/dL (35-150)
[2022-05-05 10:50] LABS: Prostate Specific Antigen Scrn 4.33 ng/mL (0.1-4.0)
[2022-05-05 16:20] LABS: Creatinine Urine Random 100.8 mg/dL
[2022-05-05 16:26] LABS: Microalbumi Creatinin Ratio Ur 6.9 ug/mg CR (<30); Microalbumin Urine Random 0.7 mg/dL (0-1.6)
[2022-05-08 16:31] LABS: Albumin 4.4 g/dL (3.5-5.0); Albumin Globulin Ratio 1.3 (1.0-2.8); Globulin 3.5 g/dL (1.7-4.1)
== END ==
PROVIDERS: PCP Family Medicine; Referring Provider Family Medicine; Visit Provider Family Medicine
DX: E78.1 Pure hyperglyceridemia (principal); E80.6 Other disorders of bilirubin metabolism; I77.810 Thoracic aortic ectasia; Q23.1 Congenital insufficiency of aortic valve; Z12.5 Encounter for screening for malignant neoplasm of prostate; I71.20 Thoracic aortic aneurysm, without rupture, unspecified
CPT/HCPCS: 36415; 80053; 80061; 82043; 82570; 84443; 85025; G0103

== ENCOUNTER → 2022-05-12 09:11 | Outpatient (CLI) | payer OTHER, SELFPAY ==
--- NOTE | 2022-05-12 09:12 | DI.ECHO.S_ITS ---
[place] [facility]---------+ [facility] +---------+ : : [address] : [address] : : : : [id number] : : : : Phone: [phone]+ Echocardiogram Report + + :Name: IKE SABILLON Study Date: 05/12/2022 Height: 74 in : :[facility] ReadingLocation: Weight: 195 lb : : Gender: Male BSA: 2.1 m2 : :: 1960 Age: 62 yrs BP: 142/86 mmHg: :Reason For Study: THORACIC AORTIC ECTASIA : :Ordering Physician: VINNY, : :JOSE Performed By: Molly Freire : :Referring: JOSE CASILLAS : + + Interpretation Summary The ejection fraction is estimated to be 60-65%. Diastolic parameters suggest probable normal left ventricular diastolic function and normal filling pressures. The right ventricle is normal in size and function. The aortic valve is bicuspid with minimal stenosis. There is mild tricuspid regurgitation. The right ventricular systolic pressure is estimated to be at least 30 mmHg based on an estimated right atrial pressure of 3 mm Hg. The ascending aorta is moderately enlarged. Compared to the prior study dated 12/26/2020, the aorta valve gradients have decreased however valve area remains the same. The ascending aorta still measures 4.2 cm and is unchanged. Procedure: A two-dimensional transthoracic echocardiogram with color flow and Doppler was performed. The study quality was technically adequate. Comparison is made with the echocardiogram of 12/26/2020. The patient was in sinus bradycardia with heart rates between 49-55 bpm during the exam. Left Ventricle: The left ventricle is normal in size and wall thickness. The ejection fraction is estimated to be 60-65%. Diastolic parameters suggest probable normal left ventricular diastolic function and normal filling pressures. Right Ventricle: The right ventricle is normal in size and function. Atria: The left atrial size is normal. Right atrial size is normal. There is no Doppler evidence for an interatrial shunt. Mitral Valve: The mitral valve is normal in structure and function. There is trace mitral regurgitation. Aortic Valve: The aortic valve is bicuspid. The aortic valve is mildly calcified. The peak aortic velocity is 2.2 m/sec. The aortic valve mean gradient is 11 mmHg. The calculated aortic valve area is 1.7 cm2. No aortic regurgitation is present. Tricuspid Valve: The tricuspid valve is normal in structure and function. There is mild tricuspid regurgitation. The right ventricular systolic pressure is estimated to be at least 30 mmHg based on an estimated right atrial pressure of 3 mm Hg. Pulmonic Valve: The pulmonic valve leaflets are thin and pliable; valve motion is normal. There is trace pulmonic regurgitation. Great Vessels: The aortic root is normal size. The ascending aorta is moderately enlarged. The IVC is of normal diameter and collapses greater than 50% with a sniff. This suggests a low right atrial pressure of 3 mm Hg. Pericardium/ Pleura There is no pericardial effusion. There is no pleural effusion. MMode/2D Measurements & Calculations LVIDd: 4.8 cm LVOT diam: 2.4 cm LVIDs: 3.5 cm Ao root diam: 3.5 cm FS: 28.6 % asc Aorta Diam: 4.2 cm IVSd: 1.1 cm Ao Arch Diam (Prox Trans): 3.2 cm LVPWd: 1.0 cm LV orellana. diameter/BSA (cm/m^2): 2.2 LV sys. diameter/BSA (cm/m^2): 1.6 LA A2 area: 20.4 cm2 RA long axis: 5.6 cm LA A4 area: 18.3 cm2 RA area: 15.9 cm2 LA length (vol): 5.5 cm RA vol: 38.6 ml LA vol: 57.7 ml RA : 17.9 ml/m2 LA vol index: 26.8 ml/m2 IVC diam: 1.6 cm RVD1 (basal): 3.9 cm RVD2 (mid): 3.2 cm TAPSE: 1.6 cm Doppler Measurements & Calculations Ao V2 max: 222.6 cm/sec LVOT Max Cosme: 82.6 cm/sec Ao V2 mean: 152.1 cm/sec LV V1 max P.7 mmHg Ao max P.3 mmHg LV V1 VTI: 20.1 cm Ao mean P.1 mmHg MAYCOL(I,D): 1.7 cm2 Ao V2 VTI: 54.1 cm MAYCOL(V,D): 1.7 cm2 sev ratio: 0.37 MAYCOL indexed to BSA (cm^2/m^2): 0.80 MV E max cosme: 70.5 cm/sec TR max cosme: 259.9 cm/sec MV A max cosme: 58.7 cm/sec TR max P.0 mmHg MV E/A: 1.2 PA V2 max: 107.8 cm/sec Med Peak E' Cosme: 6.6 cm/sec PA V2 mean: 77.0 cm/sec E/E' med: 10.6 PA mean P.6 mmHg Lat Peak E' Cosme: 11.0 cm/sec PA pr(Accel): 24.2 mmHg E/E' lat: 6.4 E/e' average: 8.5 MV dec time: 0.24 sec SV(LVOT): 92.8 ml Reading Physician:11:19 AM
== END ==
PROVIDERS: PCP Family Medicine; Referring Provider Family Medicine; Visit Provider Family Medicine
DX: I07.1 Rheumatic tricuspid insufficiency (principal); I77.89 Other specified disorders of arteries and arterioles; Q23.1 Congenital insufficiency of aortic valve; I77.810 Thoracic aortic ectasia
CPT/HCPCS: 93306

== ENCOUNTER 2022-06-09 13:37 | Day surgery (SDC) | payer OTHER, SELFPAY ==
[2022-06-05 12:59] VITALS: BMI 25.0
[2022-06-09] VITALS (8 sets, daily range): BP systolic 143–173; BP diastolic 79–105; PULSE 66–89; RESP 12–16; TEMP 36.3–36.4; O2SAT 98–100; BMI 25.0
[2022-06-09] MEDS: LACTATED RINGERS 1,000 ML 42 ML IV ×2 (14:35→16:29)
--- NOTE | 2022-06-09 15:05 | PM.PREOP ---
Pre-operative Note COVID-19 COVID-19 status: Not tested Interval Note History & Physical reviewed/Exam performed by Physician: Yes Changes to H&P: No ASA Class (for procedural sedation): II
[2022-06-09] MEDS: CEFAZOLIN 2 GM/100 ML PREMIX 100 ML IV (15:30)
--- NOTE | 2022-06-09 16:02 | SUR.OPER ---
Supine on padded and OR bed and pink pad positioner, head on pillow, arms secured on padded arm boards at <90 degrees abduction, legs uncrossed, safety belt at thigh, tape over blanket over lower legs.
[2022-06-09] MEDS: BUPIVACAINE 0.5% W/ EPI (PF) 30 ML VIAL INJ (16:37)
--- NOTE | 2022-06-09 16:54 | P.OP_ITS ---
Operative Date/Time/Diagnoses Date of procedure: 06/09/22 Time of procedure: 16:54 Pre-op diagnosis: Recurrent right inguinal hernia Post-op diagnosis: same Procedure & Clinicians Procedure: Laparoscopic recurrent right inguinal hernia repair with mesh Same procedure as scheduled: Yes Surgeon: Addi Shaw Operative Notes Findings: Recurrent right direct hernia Procedure in detail: The patient was given preoperative antibiotics. The patient was brought to the operating room, placed on the table in the supine position with the arms tucked and general anesthesia was induced. The abdomen was prepped and draped in the usual fashion. A time-out was performed. A 1 cm supraumbilical incision was created and dissection was carried down to the fascia. The inferior leaf of the fascia was grasped with a Andre clamp to elevate the abdominal wall. A Peon clamp was used to vaca the peritoneum. The Taran port was placed and the abdomen was insufflated to 15 mmHg. The camera was inserted, there was no evidence of any injury from the entry. There was a recurrent direct inguinal hernia. 5 mm ports were placed under direct vision in the mid left and mid right abdomen. The patient was positioned in steep Trendelenburg. We created right peritoneal flap. The peritoneum was dissected off the cord structures. An old Prolene stitch was seen at the edge of the hernia defect. A a medium right Bard mesh was brought in and placed over the defect with the medial edge against Ja's ligament. We then closed the peritoneal flap with a running 3- 0 barbed suture. We took one last look around the abdomen and saw no other abnormalities. The suture was removed and accounted for. The 5 mm ports were removed under direct vision. The abdomen was desufflated. The Taran port was removed. Additional local was injected into the fascia and the infraumbilical fascial incision was closed with 2 interrupted 0 Vicryl sutures. The skin incisions were closed with 4 Monocryl, Steri-Strips and Band-Aids. Post-operative Condition: stable Disposition: PACU
[2022-06-09] MEDS: HYDROCODONE/ACET 5/325 TABLET 1 TAB PO (17:19)
[2022-06-09] MEDS: fentaNYL 100 MCG/2 ML INJ IV (17:21)
== END 2022-06-09 18:11 | disposition home or self-care (01) ==
PROVIDERS: PCP Family Medicine; Referring Provider Surgery; Visit Provider Surgery
PROC: 0YQ54ZZ Repair Right Inguinal Region, Percutaneous Endoscopic Approach (ICD-10-PCS; CPT 49651; principal; 2022-06-09 14:45)
DX: K40.91 Unilateral inguinal hernia, without obstruction or gangrene, recurrent (principal)
CPT/HCPCS: 49651; J0690; J1100; J1885; J2405; J2704; J3010

== ENCOUNTER → 2022-06-25 12:57 | Outpatient (CLI) | payer OTHER, SELFPAY ==
[2022-06-26 13:36] LABS: Fecal Immunochemical Test Negative (Negative)
== END ==
PROVIDERS: PCP Family Medicine; Referring Provider Family Medicine; Visit Provider Family Medicine
DX: Z12.11 Encounter for screening for malignant neoplasm of colon (principal)
CPT/HCPCS: 82274

== ENCOUNTER → 2022-08-11 10:48 | Outpatient (CLI) | payer OTHER, SELFPAY ==
[2022-08-11 11:40] LABS: Alanine Aminotransferase 34 IU/L (<50); Albumin 4.8 g/dL (3.5-5.0); Albumin Globulin Ratio 1.4 (1.0-2.8); Alkaline Phosphatase 62 U/L (38-126); Aspartate Aminotransferase 42 IU/L (17-59); BUN Creatinine Ratio 19.8 (6-22); Bilirubin Direct 0.4 mg/dL (0.0-0.4); Bilirubin Total 2.2 mg/dL (0.2-1.3); Blood Urea Nitrogen 19 mg/dL (9-20); Calcium 9.3 mg/dL (8.4-10.2); Carbon Dioxide 29 mmol/L (22-32); Chloride 101 mmol/L (98-107); Estimated Glomerular Filt Rate > 60 mL/min (>60); Globulin 3.4 g/dL (1.7-4.1); Glucose 105 mg/dL (80-110); HEMOLYSIS 23 (0-50); Potassium 4.3 mmol/L (3.4-5.1); Sodium 137 mmol/L (137-145); Total Protein 8.2 g/dL (6.3-8.2)
== END ==
PROVIDERS: PCP Family Medicine; Referring Provider Family Medicine; Visit Provider Family Medicine
DX: E80.6 Other disorders of bilirubin metabolism (principal)
CPT/HCPCS: 36415; 80053; 82248

== ENCOUNTER → 2022-10-22 11:58 | Outpatient (CLI) | payer OTHER, SELFPAY ==
[2022-10-22 13:29] LABS: Hematocrit 44.7 % (41-53); Hemoglobin 15.4 g/dL (13.5-17.5); Mean Corpuscular HGB Conc 34.4 % (30-36); Mean Corpuscular Hemoglobin 31.5 PG (26-34); Mean Corpuscular Volume 91.6 fL (80-100); Platelet Count 196 X10^3/uL (150-400); Red Blood Cell Count 4.88 X10^6/uL (4.5-5.9); White Blood Cell Count 3.9 X10^3/uL (4.5-11.0)
[2022-10-22 13:59] LABS: Alanine Aminotransferase 37 IU/L (<50); Albumin 4.5 g/dL (3.5-5.0); Albumin Globulin Ratio 1.5 (1.0-2.8); Alkaline Phosphatase 76 U/L (38-126); Aspartate Aminotransferase 35 IU/L (17-59); BUN Creatinine Ratio 19.8 (6-22); Bilirubin Total 2.1 mg/dL (0.2-1.3); Blood Urea Nitrogen 19 mg/dL (9-20); Calcium 9.3 mg/dL (8.4-10.2); Carbon Dioxide 28 mmol/L (22-32); Chloride 102 mmol/L (98-107); Estimated Glomerular Filt Rate > 60 mL/min (>60); Glucose 100 mg/dL (80-110); HEMOLYSIS < 15 (0-50); Potassium 4.4 mmol/L (3.4-5.1); Sodium 137 mmol/L (137-145); Total Protein 7.5 g/dL (6.3-8.2)
[2022-10-22 14:28] LABS: TSH w/ Reflex to FT4 1.79 uIU/mL (0.47-4.68)
== END ==
PROVIDERS: PCP Family Medicine; Referring Provider Nurse Practitioner Family; Visit Provider Nurse Practitioner Family
DX: R07.9 Chest pain, unspecified (principal)
CPT/HCPCS: 36415; 80053; 84443; 85027

== ENCOUNTER 2022-11-02 22:37 | Observation (INO) | payer OTHER, SELFPAY ==
[2022-11-02 22:38] VITALS: BP 211/108; PULSE 79; RESP 20; TEMP 36.8; O2SAT 98; BMI 24.3
--- NOTE | 2022-11-02 22:49 | DI.RAD.S_ITS ---
PROCEDURE: XR CHEST 1V INDICATIONS: chest pain TECHNIQUE: One view of the chest was acquired. COMPARISON: None. FINDINGS: Surgical changes and devices: None. Lungs and pleura: Lungs are clear. No pleural effusions or pneumothorax. Mediastinum: Mediastinal contours appear normal. Heart size is normal. Bones and chest wall: No suspicious bony lesions. Overlying soft tissues appear unremarkable. IMPRESSION: 1. No acute cardiopulmonary disease. Dictated by: Woody Gilbert M.D. on 11/03/2022 at 0:22 Approved by: Woody Gilbert M.D. on 11/03/2022 at 0:22
[2022-11-02 22:59] LABS: Prothrombin Time 11.6 SECONDS (10.1-12.7)
[2022-11-02 23:00] LABS: Add Manual Diff / Slide Review NO; Basophils Absolute Auto 0 /uL (0-100); Basophils Percent Auto 0.5 % (0-2); Eosinophils Absolute Auto 100 /uL (0-450); Eosinophils Percent Auto 1.4 % (2-4); Hematocrit 44.3 % (41-53); Hemoglobin 15.6 g/dL (13.5-17.5); Lymphocytes Absolute Auto 1900 /uL (1100-4500); Lymphocytes Percent Auto 28.4 % (25-40); Mean Corpuscular HGB Conc 35.2 % (30-36); Mean Corpuscular Hemoglobin 31.5 PG (26-34); Mean Corpuscular Volume 89.3 fL (80-100); Monocytes Absolute Auto 700 /uL (0-900); Monocytes Percent Auto 10.1 % (3-14); Neutrophils Absolute Auto 4000 /uL (1500-7000); Neutrophils Percent Auto 59.6 % (50-75); Platelet Count 202 X10^3/uL (150-400); Red Blood Cell Count 4.96 X10^6/uL (4.5-5.9); Red Cell Distribution Width 12.8 % (11.6-14.8); White Blood Cell Count 6.7 X10^3/uL (4.5-11.0)
[2022-11-02 23:02] LABS: PTT Partial Thromboplastin Tim 33 SECONDS (26-36)
[2022-11-02 23:05] LABS: Alanine Aminotransferase 44 IU/L (<50); Albumin 4.7 g/dL (3.5-5.0); Albumin Globulin Ratio 1.3 (1.0-2.8); Alkaline Phosphatase 83 U/L (38-126); Aspartate Aminotransferase 37 IU/L (17-59); BUN Creatinine Ratio 19.2 (6-22); Bilirubin Total 1.7 mg/dL (0.2-1.3); Blood Urea Nitrogen 19 mg/dL (9-20); Calcium 9.5 mg/dL (8.4-10.2); Carbon Dioxide 27 mmol/L (22-32); Chloride 102 mmol/L (98-107); Creatine Kinase 209 U/L (55-170); Estimated Glomerular Filt Rate > 60 mL/min (>60); Globulin 3.5 g/dL (1.7-4.1); Glucose 105 mg/dL (80-110); HEMOLYSIS 19 (0-50); Lipase 104 U/L (23-300); Magnesium 2.3 mg/dL (1.6-2.3); Potassium 3.5 mmol/L (3.4-5.1); Sodium 137 mmol/L (137-145); Total Protein 8.2 g/dL (6.3-8.2)
[2022-11-02 23:17] LABS: Troponin I < 0.012 ng/mL (0.01-0.034)
[2022-11-03] VITALS (11 sets, daily range): BP systolic 135–182; BP diastolic 68–91; PULSE 55–72; RESP 12–18; TEMP 36.2–36.6; O2SAT 96–100; BMI 24.3
[2022-11-03 02:01] LABS: Creatine Kinase 184 U/L (55-170)
[2022-11-03 02:14] LABS: Troponin I < 0.012 ng/mL (0.01-0.034)
--- NOTE | 2022-11-03 05:22 | ED_ITS ---
HPI - Chest Pain General Chief Complaint: Chest Pain Stated Complaint: CHEST PAIN Time Seen by Provider: 11/03/22 05:22 Source: patient Mode of arrival: Ambulatory Limitations: no limitations History of Present Illness HPI narrative: 62-year-old gentleman with a history of hypertension, diet treated hyperlipidemia, bicuspid aortic valve, ascending aortic aneurysm with dilated aortic root presents with an episode of chest pain. He describes an episode 2 weeks ago after doing a strenuous hike [place] a mountain approximately 10 minutes after finishing his work out he had an episode of severe pain in the le ft shoulder and then severe squeezing in the left upper arm followed by an elephant sitting on his chest type feeling. The chest pain lasted approximately 30 minutes and then resolved. He saw provider in clinic approximately a week later with a reportedly normal EKG and reassurance was given. This evening he had an episode of pain while he was having an evening stroke after dinner. He described again severe left shoulder than left arm than central chest pain. It did resolve once he sat down. He came to the emergency room for further evaluation. Had an extended wait in the emergency room and approximately 3 hours into his emergency room stay he had a recurrent episode of chest pain at rest again findings as previously and resolution with in 20 minutes. He did not let staff know about that episode at rest. He describes moderate blood pressure control in the 130s over 70 range, no significant history for stroke or prior cardiac disease. He notes that both his father and grandfather did end up having myocardial infarctions in their mid 60s he is not sure on exact ages. He is a nonsmoker. Remainder of review of systems is otherwise unremarkable Related Data Previous Rx's Medication Instructions Recorded metoprolol succinate 25 mg 25 mg PO DAILY #90 tabs 05/21/22 tablet,extended release 24 hr Allergies Allergy/AdvReac Type Severity Reaction Status Date / Time codeine AdvReac Mild Nausea Verified 10/22/22 11:42 alprazolam AdvReac Verified 10/22/22 11:42 Review of Systems Review of Systems Narrative: Pertinent positive and negative findings as per HPI Patient History Medical History Ankle pain (~2015) Ascending aortic aneurysm Bicuspid aortic valve Cataracts, bilateral Dilated aortic root Easy bruisability Encounter for well adult exam without abnormal findings Foot pain (~2015) Headache HTN (hypertension) Hyperbilirubinemia Hypertriglyceridemia Psoriasis Thoracic aortic ectasia Tinnitus Surgical History H/O vasectomy (~2014) History of hernia repair Family History Father History of heart disease Hyperlipidemia Mother Alzheimer's disease Mental health problem Social History household members: significant other Smoking Status: Never smoker alcohol intake: never Smoking Status: Never smoker Substance Use Type: does not use Exam Initial Vital Signs Initial Vital Signs: Vital Signs Temperature 98.2 F 11/02/22 22:38 Pulse Rate 79 11/02/22 22:38 Respiratory Rate 20 11/02/22 22:38 Blood Pressure 211/108 H 11/02/22 22:38 Pulse Oximetry 98 11/02/22 22:38 Oxygen Delivery Method Room Air 11/02/22 22:38 General: Healthy appearing, in no acute distress. Able to give a complete and coherent history. Well-nourished well-developed HEENT: Moist mucous membranes, normal sclera with reactive pupils, Neck: No JVD, supple Respiratory: Lungs are clear to auscultation, no wheezing no rales no rhonchi. Full and symmetrical air movement Cardiac: Regular rate and rhythm no murmurs no bruits Abdomen: Soft, nontender, good bowel tones, no flank pain Skin: Warm and dry, no rashes Neurologic: Grossly neurologically intact with no obvious asymmetries or abnormalities Extremities: No trauma, well perfused Psych: Cooperative, appropriate insight and affect Course Orders Ordered: ED Orders 11/03/22 01:45 Troponin & CK Cardiac Panel Stat Acetaminophen (Acetaminophen 325 Mg Tablet) 650 mg PO Q6H PRN PRN Reason: Fever/Mild Pain (1-3) Al Hydrox/Mg Hydrox/Simethicone (Mag Hydrox/Alum/Simeth 30 Ml Udc) 30 ml PO Q6HR PRN PRN Reason: Dyspepsia Enoxaparin Sodium (Enoxaparin 40 Mg/0.4 Ml Syringe) 40 mg SUBCUT DAILY ZORAIDA Naloxone HCl (Naloxone 0.4 Mg/Ml Vial) 0.2 mg IV Q2MIN PRN PRN Reason: Opiate Reversal Nitroglycerin (Nitroglycerin 0.4 Mg Sl Tab) 0.4 mg SL [id number] PRN PRN Reason: Chest Pain Ondansetron HCl (Ondansetron 4 Mg Odt) 4 mg PO Q8HR PRN PRN Reason: Nausea And Vomiting Discontinued Medications Amlodipine Besylate (Amlodipine 5 Mg Tablet) 10 mg PO NOW ONE Stop: 11/03/22 06:22 Last Admin: 11/03/22 06:25 Dose: 10 mg Documented By: Amlodipine Besylate (Amlodipine 5 Mg Tablet) 5 mg PO NOW ONE Stop: 11/03/22 06:53 Vital Signs Vital signs: Vital Signs - 8 hr 11/03/22 01:46 11/03/22 04:03 11/03/22 04:03 Pulse Rate 62 55 L 57 L Respiratory Rate 16 16 16 Blood Pressure 172/91 H 170/87 H Pulse Oximetry 99 96 98 Oxygen Delivery Method Room Air Room Air 11/03/22 04:30 11/03/22 04:30 11/03/22 05:00 Pulse Rate 58 L Respiratory Rate 12 Blood Pressure 162/88 H 172/90 H Pulse Oximetry 98 Oxygen Delivery Method 11/03/22 05:00 11/03/22 05:30 11/03/22 05:59 Pulse Rate 58 L 66 68 Respiratory Rate 14 18 Blood Pressure Pulse Oximetry 99 99 98 Oxygen Delivery Method 11/03/22 05:59 11/03/22 06:00 11/03/22 06:00 Pulse Rate 65 Respiratory Rate 18 Blood Pressure 182/86 H 177/90 H Pulse Oximetry 98 Oxygen Delivery Method MDM - Chest Pain Lab Data 11/02/22 22:44 11/02/22 22:44 Labs: Lab Results 11/02/22 11/02/22 11/02/22 Range/Units 22:44 22:44 22:44 WBC 6.7 (4.5-11.0) X10^3/uL RBC 4.96 (4.5-5.9) X10^6/uL Hgb 15.6 (13.5-17.5) g/dL Hct 44.3 (41-53) % MCV 89.3 (80-100) fL MCH 31.5 (26-34) PG MCHC 35.2 (30-36) % RDW 12.8 (11.6-14.8) % Plt Count 202 (150-400) X10^3/uL Neut % (Auto) 59.6 (50-75) % Lymph % (Auto) 28.4 (25-40) % [place] % (Auto) 10.1 (3-14) % Eos % (Auto) 1.4 L (2-4) % Baso % (Auto) 0.5 (0-2) % Neut # (Auto) 4000 (1151-6475) /uL Lymph # (Auto) 1900 (5080-5902) /uL [place] # (Auto) 700 (0-900) /uL Eos # (Auto) 100 (0-450) /uL Baso # (Auto) 0 (0-100) /uL PT 11.6 (10.1-12.7) SECONDS INR 1.0 (0.9-1.3) APTT 33 (26-36) SECONDS Sodium 137 (137-145) mmol/L Potassium 3.5 (3.4-5.1) mmol/L Chloride 102 (98-107) mmol/L Carbon Dioxide 27 (22-32) mmol/L BUN 19 (9-20) mg/dL Creatinine 0.99 (0.66-1.25) mg/dL Estimated GFR > 60 (>60) mL/min BUN/Creatinine Ratio 19.2 (6-22) Glucose 105 (80-110) mg/dL Calcium 9.5 (8.4-10.2) mg/dL Magnesium 2.3 (1.6-2.3) mg/dL Total Bilirubin 1.7 H (0.2-1.3) mg/dL AST 37 (17-59) IU/L ALT 44 (<50) IU/L Alkaline Phosphatase 83 (38-126) U/L Total Creatine Kinase 209 H (55-170) U/L Troponin I < 0.012 (0.01-0.034) ng/mL Total Protein 8.2 (6.3-8.2) g/dL Albumin 4.7 (3.5-5.0) g/dL Globulin 3.5 (1.7-4.1) g/dL Albumin/Globulin Ratio 1.3 (1.0-2.8) Lipase 104 (23-300) U/L 11/03/22 Range/Units 01:45 WBC (4.5-11.0) X10^3/uL RBC (4.5-5.9) X10^6/uL Hgb (13.5-17.5) g/dL Hct (41-53) % MCV (80-100) fL MCH (26-34) PG MCHC (30-36) % RDW (11.6-14.8) % Plt Count (150-400) X10^3/uL Neut % (Auto) (50-75) % Lymph % (Auto) (25-40) % [place] % (Auto) (3-14) % Eos % (Auto) (2-4) % Baso % (Auto) (0-2) % Neut # (Auto) (1897-3726) /uL Lymph # (Auto) (3012-6410) /uL [place] # (Auto) (0-900) /uL Eos # (Auto) (0-450) /uL Baso # (Auto) (0-100) /uL PT (10.1-12.7) SECONDS INR (0.9-1.3) APTT (26-36) SECONDS Sodium (137-145) mmol/L Potassium (3.4-5.1) mmol/L Chloride (98-107) mmol/L Carbon Dioxide (22-32) mmol/L BUN (9-20) mg/dL Creatinine (0.66-1.25) mg/dL Estimated GFR (>60) mL/min BUN/Creatinine Ratio (6-22) Glucose (80-110) mg/dL Calcium (8.4-10.2) mg/dL Magnesium (1.6-2.3) mg/dL Total Bilirubin (0.2-1.3) mg/dL AST (17-59) IU/L ALT (<50) IU/L Alkaline Phosphatase (38-126) U/L Total Creatine Kinase 184 H (55-170) U/L Troponin I < 0.012 (0.01-0.034) ng/mL Total Protein (6.3-8.2) g/dL Albumin (3.5-5.0) g/dL Globulin (1.7-4.1) g/dL Albumin/Globulin Ratio (1.0-2.8) Lipase (23-300) U/L [facility] Narrative Medical decision making narrative: CC: Chest pain, send acute issue uncertain prognosis Complicating co-morbidities: Hypertension Data collected from: patient, Medical records reviewed: Family practice notes from April of 2022 your reviewed Differential considered: Acute coronary syndrome, unstable angina, aortic dissection Exam documented above, pertinent findings include: Completely benign exam pain- free at time of exam Lab Test results independently reviewed as above. Pertinent findings: CBC is unremarkable Chemistries were reassuring. He has a chronically elevated bilirubin that is actually slightly lower than baseline. Troponin is undetectable at initial and repeat. Independently reviewed EKG sinus rhythm at a rate of 76. He has slight ST depression V3 through V6. No ST elevation. Imaging studies independently reviewed: Echocardiogram from April of 2022 is reviewed, ejection fraction is 60-65%. Unchanged aortic valve area in comparison to December of 2020. The ascending aorta still measures 4.2 cm and is unchanged from prior echo. Consultations: Tele video hospitalist, Dr Small is contacted. Patient will be admitted observation status for further cardiac evaluation and presumably nuclear medicine stress testing Cardiology: 6am agrees with stress testing today in light of essential cardiac rule out over the course of his ER visit today. Suggested trying amlodipine for blood pressure control and holding metoprolol until after the stress test. Given echocardiogram within the last 6 months and aortic root at only 4.2 did not feel that chest angiogram would be required today. Discussion: 62-year-old gentleman with increasing anginal symptoms over the last 2 weeks with an episode of angina at rest in the emergency department. Troponin is unremarkable. Slight ST depression laterally. His heart score is 6 and hospitalization is recommended. I believe stress testing is going to be appropriate. Will give him a dose of amlodipine this morning to see if blood pressures can come down enough to facilitate stress testing later this morning while still holding metoprolol. Patient remains pain-free and recognizes that he does need to let staff know if he has any recurrent episodes of patent. Discharge Plan Departure Patient Disposition: Admitted as Observation Clinical Impression: Chest pain Qualifiers: Ischemic chest pain type: unstable angina pectoris Admit Date/Time: 11/03/22 06:20 Admit Provider: Jose Small
[2022-11-03] MEDS: AMLODIPINE 5 MG TABLET 10 MG PO (06:25)
--- NOTE | 2022-11-03 06:56 | DI.NM.S_ITS ---
PROCEDURE: NM TAY PERF SPECT REST & STR Rest and exercise myocardial perfusion SPECT with gated imaging and ejection fraction RADIOPHARMACEUTICAL: 11.6 mCi Tc-99m sestamibi IV at rest and 27.5 mCi Tc-99m sestamibi IV at peak exercise. A one day-protocol was performed. INDICATIONS: Chest Pain TECHNIQUE: Radiopharmaceutical was injected at peak stress test, and also at rest. SPECT images were obtained. SPECT myocardial perfusion images were displayed in short axis, horizontal long axis, and vertical long axis views. Gated images were reviewed using Endocyte software. COMPARISON: None. CARDIAC STRESS: A standard William treadmill exercise tolerance test was performed by the patient under the supervision of an attending staff. The patient exercised for 10 minutes and 1 seconds; functional aerobic impairment (IKE) is -20%. Hemodynamic data: There is normal blood pressure and heart rate response to exercise stress. Patient achieved 108% of maximum predicted heart rate at peak exercise. Symptoms: Patient denied chest pain during exercise. EKG: Mild horizontal ST depressions in the anterolateral leads during recovery; no ectopy. FINDINGS: Raw data: There is good myocardial labeling by radiotracer. No significant motion artifacts. Yjna-nu-pzzhh ratio is 0.34 (normal is less than 0.38 for sestamibi tracer, and less than 0.50 for thallium tracer). Left ventricle function: Gated images demonstrate normal left ventricle wall thickening. No segmental wall motion abnormality. No transient ischemic dilation; TID is 0.7 (normal less than 1.3). The left ventricle resting end-diastolic volume is 92 mL. Left ventricle stress ejection fraction is 81%; normal values are above 45%. Myocardial perfusion: There is normal distribution of activity in the left and right ventricular myocardium. No fixed or reversible perfusion defects. IMPRESSION: Low risk, normal treadmill nuclear stress study. 1) No perfusion evidence of ischemia or infarction. 2) Normal left ventricular size, wall motion, and systolic function (EF post stress 81%). 3) Mild horizontal ST depressions in the anterolateral leads during recovery 4) No angina during the study. 5) Good exercise tolerance (10.7METS, IKE -20%). Target heart rate achieved. Appropriate BP response to exercise. 6) No prior nuclear stress test available for comparison. Dictated by: Franko Webster MD on 11/03/2022 at 13:07 Approved by: Franko Webster MD on 11/03/2022 at 13:10
--- NOTE | 2022-11-03 07:00 | PM.HP.1 ---
History of Present Illness History of Present Illness Date Patient Seen: 11/03/22 Time Patient Seen: 07:30 Date of Onset of Symptoms: 10/20/22 Chief complaint: CHEST PAIN Narrative: 62 y/o with PMH of HTN treated with Toprol XL 25 mg daily, diet-controlled mixed HLD, bicuspid AV with ascending aortic aneurysm, physically active, initially had an episode of severe Lt shoulder / upper arm pain 2 weeks ago. It happened after his usual [place] the [place]. He was seen in the office a week ago, had unremarkable ECG. The evening prior to admission he developed similar pain, w/o sweating, nausea, shortness of breath. Presented to ED borderline hypertensive with initial work up positive only for non-specific T changes on ECG. He then had another episode of chest pain in ED that he did not report to the staff up until ~ 6 am. At the time of my admission he has no chest pain or any other symptom. [facility] Medical History (Updated 11/03/22 @ 08:45 by Jose Small MD) Ankle pain (~2015) Ascending aortic aneurysm Bicuspid aortic valve Cataracts, bilateral Dilated aortic root Easy bruisability Encounter for well adult exam without abnormal findings Foot pain (~2015) Headache HTN (hypertension) Hyperbilirubinemia Hypertriglyceridemia Psoriasis Thoracic aortic ectasia Tinnitus Surgical History H/O vasectomy (~2014) History of hernia repair Family History Father History of heart disease Hyperlipidemia Mother Alzheimer's disease Mental health problem Social History household members: significant other Smoking Status: Never smoker alcohol intake: never Meds Home Medications and Allergies Home Medications Medication Instructions Recorded Confirmed Type metoprolol succinate 25 mg 25 mg PO DAILY #90 tabs 05/21/22 10/22/22 Rx tablet,extended release 24 hr Allergies Allergy/AdvReac Type Severity Reaction Status Date / Time codeine AdvReac Mild Nausea Verified 10/22/22 11:42 alprazolam AdvReac Verified 10/22/22 11:42 Review of Systems Review of Systems Narrative: General - no fever or chills HEENT - w/o recent vision or hearing changes RS - w/o cough, wheezing or shortness of breath GI - w/o N/V/bloody or dark stool UG - w/o dysuria Neuro - w/o meakness or numbness Psych - not anxious Skin - no rashes CVS - as in HPI Exam Vital Signs (past 8 hours): - 11/03/22 01:46 11/03/22 04:03 11/03/22 04:03 Pulse Rate 62 55 L 57 L Respiratory Rate 16 16 16 Blood Pressure 172/91 H 170/87 H Pulse Oximetry 99 96 98 Oxygen Delivery Method Room Air Room Air 11/03/22 04:30 11/03/22 04:30 11/03/22 05:00 Pulse Rate 58 L Respiratory Rate 12 Blood Pressure 162/88 H 172/90 H Pulse Oximetry 98 Oxygen Delivery Method 11/03/22 05:00 11/03/22 05:30 11/03/22 05:59 Pulse Rate 58 L 66 68 Respiratory Rate 14 18 Blood Pressure Pulse Oximetry 99 99 98 Oxygen Delivery Method 11/03/22 05:59 11/03/22 06:00 11/03/22 06:00 Pulse Rate 65 Respiratory Rate 18 Blood Pressure 182/86 H 177/90 H Pulse Oximetry 98 Oxygen Delivery Method 11/03/22 06:30 Pulse Rate 62 Respiratory Rate Blood Pressure Pulse Oximetry 98 Oxygen Delivery Method Oxygen Delivery Method Room Air Const General: comfortable and well developed Orientation: alert and oriented x3 HENMT Head: normocephalic Eyes General: appearance normal, both eyes and all related structures Neck Neck: normal visual inspection Resp Effort & Inspection: normal respiratory effort Auscultation: clear to auscultation bilaterally Cardio Rate: regular rate Rhythm: regular rhythm Heart Sounds: S1 normal and S2 normal GI Inspection: normal to inspection Palpation: soft Skin General: no rashes or lesions noted Neuro General: no focal motor deficits Cognition: normal cognition Extrem General: normal to inspection Psych Attitude: cooperative Thought Process: normal Objective ECG Impression: Sinus rhythm, ST depression in precordial leads Labs 11/02/22 22:44 11/02/22 22:44 Labs: Laboratory Results - last 24 hr 11/02/22 11/02/22 11/02/22 22:44 22:44 22:44 WBC 6.7 RBC 4.96 Hgb 15.6 Hct 44.3 MCV 89.3 MCH 31.5 MCHC 35.2 RDW 12.8 Plt Count 202 Neut % (Auto) 59.6 Lymph % (Auto) 28.4 [place] % (Auto) 10.1 Eos % (Auto) 1.4 L Baso % (Auto) 0.5 Neut # (Auto) 4000 Lymph # (Auto) 1900 [place] # (Auto) 700 Eos # (Auto) 100 Baso # (Auto) 0 PT 11.6 INR 1.0 APTT 33 Sodium 137 Potassium 3.5 Chloride 102 Carbon Dioxide 27 BUN 19 Creatinine 0.99 Estimated GFR > 60 BUN/Creatinine Ratio 19.2 Glucose 105 Calcium 9.5 Magnesium 2.3 Total Bilirubin 1.7 H AST 37 ALT 44 Alkaline Phosphatase 83 Total Creatine Kinase 209 H Troponin I < 0.012 Total Protein 8.2 Albumin 4.7 Globulin 3.5 Albumin/Globulin Ratio 1.3 Lipase 104 11/03/22 01:45 WBC RBC Hgb Hct MCV MCH MCHC RDW Plt Count Neut % (Auto) Lymph % (Auto) [place] % (Auto) Eos % (Auto) Baso % (Auto) Neut # (Auto) Lymph # (Auto) [place] # (Auto) Eos # (Auto) Baso # (Auto) PT INR APTT Sodium Potassium Chloride Carbon Dioxide BUN Creatinine Estimated GFR BUN/Creatinine Ratio Glucose Calcium Magnesium Total Bilirubin AST ALT Alkaline Phosphatase Total Creatine Kinase 184 H Troponin I < 0.012 Total Protein Albumin Globulin Albumin/Globulin Ratio Lipase Assessment & Plan Assessment and plan (1) Chest pain: Qualifiers: Ischemic chest pain type: unstable angina pectoris Status: Acute Plan: Placed in observation on telemetry. Discussed between ED attending and grinder mill operator Dr Webster. Had recent echcoardiogram. Stress test pending.Toprol XL held. Amlodipine for BP control in anticipation of stress test. ASA, NTG prn. (2) Dilated aortic root: Problem details: 4.2 cm Status: Acute Plan: Outpatient periodic ECHOs / cardiology f/u (3) Bicuspid aortic valve: Status: Acute (4) HLD (hyperlipidemia): Status: Acute Plan: Recent lipid panel with LDL and Triglycerides ~ 130-150 Diet control at home. Start statin. Assessment & Plan narrative: 62 y/o presents with clinical picture of unstable angina, over the course of last 2 weeks with recurrent episodes of chest pain, self-medicated with ASA, hypertensive, placed in observation for stress test.
--- NOTE | 2022-11-03 13:24 | CM.DANOTE ---
DCP: Case received, EMR reviewed and met with patient. Introduced self and role. Was able to complete DCP assessment based upon information currently available. Patient is a 62 year old male who admitted early this morning to the care of the hospitalist team. PCP: Dr. Dsouza. Payer: confirmed: [facility]. Patient came to the hospital via private vehicle secondary to having chest pain. Notes indicate that patient had been hiking recently, having severe pain in his left shoulder, and squeezing to chest. Patient admitted for chest pain, is here for evaluation, stress test. Met with patient in his room. He is alert, confirmed that he resides here in [place] with partner, Donna Spivey. He is independent at baseline. P: DCP to continue to follow. Plan is home when deemed medically stable. Kay Aguilear RN/C Iron Worker Discharge Planning/Care Management CM Discharge Assessment Start: 11/03/22 13:23 Freq: Status: Active Protocol: Document 11/03/22 13:23 (Rec: 11/03/22 13:24 [id number]) Discharge Planning Assessment Assigned Accounting Machine Operator Kay Aguilera RN/C Iron Worker Advance Directives? Yes History Provided By Patient,Medical Record Household Members significant other Type of transporation used prior to Drives own vehicle admit Independent with ADL's Yes Is patient alert and oriented? Yes Caregiver for Another No Barriers to Discharge No Discharge Plan Home Transportation Arrangement Family Referrals Initiated None needed Whiteboard Updated in Patient Room with Yes name and ext. # of Accounting Machine Operator Review Status In Process Next Review Type Continued Stay Review
--- NOTE | 2022-11-03 14:48 | P.DS_ITS ---
History of Present Illness History of Present Illness Date Patient Seen: 11/03/22 Time Patient Seen: 07:30 Chief complaint: CHEST PAIN Narrative: 62 y/o with PMH of HTN treated with Toprol XL 25 mg daily, diet-controlled mixed HLD, bicuspid AV with ascending aortic aneurysm, physically active, initially had an episode of severe Lt shoulder / upper arm pain 2 weeks ago. [place] in the office a week ago, had unremarkable ECG. The evening prior to admission he developed similar pain, w/o sweating, nausea, shortness of breath. Presented to ED borderline hypertensive with initial work up positive only for non-specific T changes on ECG. He then had another episode of chest pain in ED that he did not report to the staff up until ~ 6 am. At the time of my admission he has no chest pain or any other symptom. Discharge Providers Provider Date of admission: 11/03/22 06:20 Discharge Date: 11/03/22 Primary care physician: Mario Dsouza MD Discharge provider: Bethel Bloom DO Summary Hospital Course Discharge Diagnosis: # Chest pain. -Discussed between ED attending and nutrition teacher Dr Webster. -Had recent echcoardiogram so not repeated -Stress test pending. -Toprol XL held. -Amlodipine for BP control in anticipation of stress test. -ASA, NTG prn. # Dilated aortic root 4.2 cm -stable on previous echos # Bicuspid aortic valve # HLD -Recent lipid panel with LDL and Triglycerides ~ 130-150 -Diet control at home. Hospital Course: For chest pain and underwent nuclear stress test which was reassuring. He had no further episodes of chest pain during admission. Discharged home to discuss switching his blood pressure medication from metoprolol to amlodipine, as he feels some exercise intolerance with metoprolol. Time Spent with Patient Time spent: Greater than 30 minutes Exam Vital Signs (past 8 hours): - 11/03/22 08:37 11/03/22 13:12 Temperature 98 F 97.8 F Pulse Rate 68 72 Respiratory Rate 17 17 Blood Pressure 140/79 135/68 Pulse Oximetry 100 99 Oxygen Flow Rate 0 0 Oxygen Delivery Method Room Air Oxygen Flow Rate 0 Const General: comfortable and well developed Orientation: alert and oriented x3 HENMT Head: normocephalic Eyes General: appearance normal, both eyes and all related structures Neck Neck: normal visual inspection Resp Effort & Inspection: normal respiratory effort Auscultation: clear to auscultation bilaterally Cardio Rate: regular rate Rhythm: regular rhythm Heart Sounds: S1 normal and S2 normal GI Inspection: normal to inspection Palpation: soft Skin General: no rashes or lesions noted Neuro General: no focal motor deficits Cognition: normal cognition Extrem General: normal to inspection Psych Attitude: cooperative Thought Process: normal Objective Labs 11/02/22 22:44 11/02/22 22:44 Labs: Laboratory Results - last 24 hr 11/02/22 11/02/22 11/02/22 22:44 22:44 22:44 WBC 6.7 RBC 4.96 Hgb 15.6 Hct 44.3 MCV 89.3 MCH 31.5 MCHC 35.2 RDW 12.8 Plt Count 202 Neut % (Auto) 59.6 Lymph % (Auto) 28.4 [place] % (Auto) 10.1 Eos % (Auto) 1.4 L Baso % (Auto) 0.5 Neut # (Auto) 4000 Lymph # (Auto) 1900 [place] # (Auto) 700 Eos # (Auto) 100 Baso # (Auto) 0 PT 11.6 INR 1.0 APTT 33 Sodium 137 Potassium 3.5 Chloride 102 Carbon Dioxide 27 BUN 19 Creatinine 0.99 Estimated GFR > 60 BUN/Creatinine Ratio 19.2 Glucose 105 Calcium 9.5 Magnesium 2.3 Total Bilirubin 1.7 H AST 37 ALT 44 Alkaline Phosphatase 83 Total Creatine Kinase 209 H Troponin I < 0.012 Total Protein 8.2 Albumin 4.7 Globulin 3.5 Albumin/Globulin Ratio 1.3 Lipase 104 11/03/22 01:45 WBC RBC Hgb Hct MCV MCH MCHC RDW Plt Count Neut % (Auto) Lymph % (Auto) [place] % (Auto) Eos % (Auto) Baso % (Auto) Neut # (Auto) Lymph # (Auto) [place] # (Auto) Eos # (Auto) Baso # (Auto) PT INR APTT Sodium Potassium Chloride Carbon Dioxide BUN Creatinine Estimated GFR BUN/Creatinine Ratio Glucose Calcium Magnesium Total Bilirubin AST ALT Alkaline Phosphatase Total Creatine Kinase 184 H Troponin I < 0.012 Total Protein Albumin Globulin Albumin/Globulin Ratio Lipase [facility] Medical History (Updated 11/03/22 @ 08:45 by Jose Small MD) Ankle pain (~2016) Ascending aortic aneurysm Bicuspid aortic valve Cataracts, bilateral Dilated aortic root Easy bruisability Encounter for well adult exam without abnormal findings Foot pain (~2015) Headache HTN (hypertension) Hyperbilirubinemia Hypertriglyceridemia Psoriasis Thoracic aortic ectasia Tinnitus Surgical History H/O vasectomy (~2014) History of hernia repair Family History Father History of heart disease Hyperlipidemia Mother Alzheimer's disease Mental health problem Social History household members: significant other Smoking Status: Never smoker alcohol intake: never Discharge Plan Discharge Plan Patient Disposition: Home Provider Discharge Comment: You were admitted for chest pain and all of your workup was reassuring. Discharge orders & Medications Prescriptions: Continued metoprolol succinate 25 mg tablet extended release 24 hr 25 mg PO DAILY Qty: 90 3RF No Action esomeprazole magnesium [Nexium] 20 mg Capsule,Delayed Release(Dr/Ec) 20 mg PO PRN PRN (Reason: Acid Reflux) Follow up/Referrals: Mario Dsouza MD [Primary Care Provider] - As previously scheduled (has appt with [facility] already) Visit Report/Discharge Packet Instructions: DI for Chest Pain Stand Alone Forms: Patient Portal/API, Stroke Signs & Symptoms Discharge Data Primary Care Provider: Mario Dsouza Attending Provider: Jose Small Admit Date/Time: 11/03/22 06:20 Discharges patient from system. Discharge Date/Time: 11/03/22 15:00
--- NOTE | 2022-11-03 15:27 | PC.NURSE ---
Discharge Note Patient A&O, VSS, RA, no complaints of pain/discomfort. Patient agreeable to discharge plan. Discharge packet reviewed with patient, all questions/concerns addressed. PIV/TELE discontinued. Patient able to dress self and pack all belongings. Patient walked down to POV.
== END 2022-11-03 15:00 | disposition home or self-care (01) ==
LOC: ED 11-03 06:21 → AC 11-03 06:38
PROVIDERS: Admitting Provider Internal Medicine; Emergency Provider Emergency Medicine; PCP Family Medicine; Referring Provider Emergency Medicine; Visit Provider Internal Medicine
DX: I20.9 Angina pectoris, unspecified (principal); I10 Essential (primary) hypertension; E78.5 Hyperlipidemia, unspecified; I77.819 Aortic ectasia, unspecified site
CPT/HCPCS: 36415; 71045; 78452; 80053; 82550; 83690; 83735; 84484; 85025; 85610; 85730; 93005; 93017; 99283; 99284; G0378; A9502

== ENCOUNTER → 2023-02-17 09:26 | Outpatient (CLI) | payer OTHER, SELFPAY ==
[2022-11-03 08:00] VITALS: BMI 24.3
[2023-02-17 11:00] LABS: Alanine Aminotransferase 38 IU/L (<50); Albumin 4.6 g/dL (3.5-5.0); Albumin Globulin Ratio 1.4 (1.0-2.8); Alkaline Phosphatase 57 U/L (38-126); Aspartate Aminotransferase 32 IU/L (17-59); BUN Creatinine Ratio 17.5 (6-22); Bilirubin Total 1.8 mg/dL (0.2-1.3); Blood Urea Nitrogen 17 mg/dL (9-20); Calcium 9.7 mg/dL (8.4-10.2); Carbon Dioxide 27 mmol/L (22-32); Chloride 102 mmol/L (98-107); Cholesterol 194 mg/dL (140-199); Estimated Glomerular Filt Rate > 60 mL/min (>60); Globulin 3.2 g/dL (1.7-4.1); Glucose 111 mg/dL (80-110); HDL Cholesterol 44 mg/dL (40-60); HEMOLYSIS < 15 (0-50); LDL Cholesterol Calculated 115 mg/dL (<100); Magnesium 2.3 mg/dL (1.6-2.3); Potassium 4.6 mmol/L (3.4-5.1); Sodium 137 mmol/L (137-145); Total Protein 7.8 g/dL (6.3-8.2); Triglycerides 177 mg/dL (35-150)
[2023-02-17 11:30] LABS: Thyroid Stimulating Hormone 2.23 uIU/mL (0.47-4.68)
== END ==
PROVIDERS: PCP Family Medicine; Referring Provider Internal Medicine Cardiovascular Disease; Visit Provider Internal Medicine Cardiovascular Disease
DX: E78.5 Hyperlipidemia, unspecified (principal); I10 Essential (primary) hypertension
CPT/HCPCS: 36415; 80053; 80061; 83735; 84443

== ENCOUNTER → 2023-07-08 10:53 | Outpatient (CLI) | payer OTHER, SELFPAY ==
[2022-11-03 08:00] VITALS: BMI 24.3
[2023-07-08 12:42] LABS: Cholesterol 107 mg/dL (140-199); HDL Cholesterol 46 mg/dL (40-60); LDL Cholesterol Calculated 41 mg/dL (<100); Triglycerides 101 mg/dL (35-150)
== END ==
LOC: LAB 10:54
PROVIDERS: PCP Family Medicine; Referring Provider Internal Medicine Cardiovascular Disease; Visit Provider Internal Medicine Cardiovascular Disease
DX: E78.5 Hyperlipidemia, unspecified (principal)
CPT/HCPCS: 36415; 80061

== ENCOUNTER → 2024-02-07 16:50 | Outpatient (CLI) | payer MEDICARE, OTHER, SELFPAY ==
[2022-11-03 08:00] VITALS: BMI 24.3
--- NOTE | 2024-02-07 16:53 | DI.RAD.S_ITS ---
PROCEDURE: XR LUMBAR SPINE 2-3V INDICATIONS: acute on chronic low back TECHNIQUE: 3 views of the lumbar spine were acquired. COMPARISON: None. FINDINGS: Bones: 5 [id number] vertebrae are present. There is normal bony alignment. No vertebral body compression fractures. No suspicious bony lesions. Moderate disc height loss at L5-S1. Mild disc height loss at remaining levels. Facet arthrosis of L3 through S1. Soft tissues: Overlying bowel gas pattern is normal. No suspicious soft tissue calcifications. IMPRESSION: Mild to moderate, multilevel degenerative disc disease and lower lumbar facet arthrosis. Dictated by: Wild Lerma M.D. on 02/07/2024 at 21:56 Approved by: Wild Lerma M.D. on 02/07/2024 at 21:57
== END ==
PROVIDERS: PCP Family Medicine; Referring Provider Family Medicine; Visit Provider Family Medicine
DX: M47.816 Spondylosis without myelopathy or radiculopathy, lumbar region (principal); M47.817 Spondylosis without myelopathy or radiculopathy, lumbosacral region; M51.360 Other intervertebral disc degeneration, lumbar region with discogenic back pain only; M51.370 Other intervertebral disc degeneration, lumbosacral region with discogenic back pain only; G89.29 Other chronic pain
CPT/HCPCS: 72100

== ENCOUNTER → 2024-09-21 12:09 | Outpatient (CLI) | payer MEDICARE, OTHER, SELFPAY ==
[2022-11-03 08:00] VITALS: BMI 24.3
[2024-09-22 10:40] LABS: Rubeola Measles IgG 40.8 AU/mL (Immune >16.4)
== END ==
PROVIDERS: PCP Family Medicine; Referring Provider Family Medicine; Visit Provider Family Medicine
DX: Z01.84 Encounter for antibody response examination (principal)
CPT/HCPCS: 36415; 86735; 86762; 86765

== ENCOUNTER → 2024-11-10 11:29 | Outpatient (CLI) | payer MEDICARE, OTHER, SELFPAY ==
[2022-11-03 08:00] VITALS: BMI 24.3
[2024-11-10 12:16] LABS: Blood Urea Nitrogen 16 mg/dL (9-20); Calcium 9.3 mg/dL (8.4-10.2); Carbon Dioxide 26 mmol/L (22-32); Chloride 103 mmol/L (98-107); Estimated Glomerular Filt Rate > 60 mL/min (>60); Glucose 107 mg/dL (70-99); HEMOLYSIS 15 (0-50); Potassium 4.5 mmol/L (3.4-5.1); Sodium 139 mmol/L (137-145)
== END ==
PROVIDERS: PCP Family Medicine; Referring Provider Internal Medicine Cardiovascular Disease; Visit Provider Internal Medicine Cardiovascular Disease
DX: I10 Essential (primary) hypertension (principal)
CPT/HCPCS: 36415; 80048

== ENCOUNTER → 2025-01-31 10:42 | Outpatient (CLI) | payer MEDICARE, OTHER, SELFPAY ==
[2022-11-03 08:00] VITALS: BMI 24.3
[2025-01-31 12:36] LABS: Hemoglobin A1C% w Est Avg Glu 5.6 % (4.0-6.0)
[2025-01-31 12:53] LABS: Cholesterol 112 mg/dL (140-199); HDL Cholesterol 50 mg/dL (40-60); Triglycerides 114 mg/dL (35-150)
== END ==
PROVIDERS: PCP Family Medicine; Referring Provider Family Medicine; Visit Provider Internal Medicine Cardiovascular Disease
DX: Z13.1 Encounter for screening for diabetes mellitus (principal); E78.5 Hyperlipidemia, unspecified
CPT/HCPCS: 36415; 80061; 83036